=== PATIENT | male | born 1950 | race Caucasian/White ===

== ENCOUNTER 2020-04-25 11:39 | Outpatient (REF) | payer MEDICARE, SELFPAY | END 2020-04-25 11:40 | disposition home or self-care (01) | LOC: HO.LAB 11:39 | PROVIDERS: Visit Provider Internal Medicine | DX: Z20.828 Contact with and (suspected) exposure to other viral communicable diseases (principal) | CPT/HCPCS: C9803; U0003 ==

== ENCOUNTER 2022-12-28 00:15 | Emergency (ER) | payer MEDICARE, SELFPAY ==
[2022-12-28 00:36] VITALS: BP 144/85; PULSE 87; RESP 18; TEMP 37.1; O2SAT 97; BMI 27.9
--- NOTE | 2022-12-28 01:12 | PC.NURSE ---
patient reports increase in difficulty hearing in left ear over the past two weeks. some visible wax build-up on examination.
--- NOTE | 2022-12-28 01:31 | ED.GENADULT ---
HPI - General Adult General Chief complaint: Ear Problems Stated complaint: Pain left ear Time Seen by Provider: 12/28/22 00:51 Source: patient and RN notes reviewed Mode of arrival: ambulatory Limitations: no limitations History of Present Illness HPI narrative: 72 year old male presents for evaluation of left ear pain Patient reports that about 10 months ago he started to notice decreased hearing on the left side For the last few months he has had increasing left ear pain He admits to using Q-tips occasionally He did not stick anything else in his ear Related Data Allergies Allergy/AdvReac Type Severity Reaction Status Date / Time No Known Allergies Allergy Unverified 12/28/22 00:35 Review of Systems ENT: Denies ear discharge and Reports otalgia PMFSH Social History Social History Alcohol intake: current Alcohol intake frequency: holidays/special occasions only Smoked in Last 30 Days: No Use of substances other than those prescribed or required for medical reasons: No Physical Exam ED Vital Signs: Vital Signs - 24 hr 12/28/22 00:36 Temperature 98.7 F Pulse Rate 87 Respiratory Rate 18 Blood Pressure 144/85 H Pulse Oximetry 97 Oxygen Delivery Method Room Air BMI result Body Mass Index 27.9 HENMT Other: Left external ear canal is occluded with dark brown cerumen. Postprocedure the tympanic membrane was visualized, pearly white without perforation. No mastoid tenderness or postauricular edema Ears: external ears normal and TM normal on the right Medical Decision Making Medical Decision Making MDM Narrative: Patient has a cerumen impaction of the left ear. The left ear was irrigated with 100 cc of solution of warm water mixed with hydrogen peroxide. A curette was then used to remove large clumps of ear wax from the ear canal. Patient tolerated the procedure well, there were no complications Differential Diagnosis Differential Diagnoses: The differential diagnosis associated with the presentation includes cerumen impaction Otitis media Otitis externa Mastitis Discharge Plan Discharge Clinical Impression: Cerumen impaction Patient Disposition: Home, Self-Care Instructions: Earache (ED) Additional Instructions: You had a buildup of ear wax in your left ear. You may use Debrox drops which are [id number] to help soften up the last little bit of remaining ear wax Follow-up with your primary doctor
== END 2022-12-28 01:43 | disposition home or self-care (01) ==
PROVIDERS: Emergency Provider Emergency Medicine
DX: H61.22 Impacted cerumen, left ear (principal); H92.02 Otalgia, left ear
CPT/HCPCS: 69210; 99284

== ENCOUNTER 2023-02-01 19:31 | Inpatient (IN) | payer MEDICARE, SELFPAY ==
[2023-02-01 19:44] VITALS: BP 163/87; PULSE 99; RESP 18; TEMP 36.8; O2SAT 96; BMI 30.7
--- NOTE | 2023-02-01 19:45 | ED.GENADULT ---
HPI - General Adult General Chief complaint: Neuro Symptoms/Deficit Stated complaint: Pain in neck/head/jaw, can't eat Time Seen by Provider: 02/01/23 20:12 Source: patient Mode of arrival: ambulatory Limitations: no limitations History of Present Illness HPI narrative: A 72-year-old Slovak pleasant male patient came in for evaluation of 3 days history of difficulty swallowing of any food ( solid or liquid) patient today could not swallow a yogurt had spitted out patient described it as a weakness of the muscle of his neck that make him cannot swallow, patient also described dysarthria and dry mouth with difficulty speaking for the past 3 days patient speaks enough Togolese to express himself. complaining of headache, no blurry vision, no photophobia. Patient declined any trauma to the head or neck. Otherwise patient declined any weakness or numbness, no CP, no SOB. Related Data Allergies Allergy/AdvReac Type Severity Reaction Status Date / Time No Known Allergies Allergy Verified 02/01/23 19:44 Review of Systems Review of Systems: All other systems are reviewed and are negative Constitutional: Reports as per HPI and Reports no additional constitutional complaints Eyes: Reports as per HPI and Reports no additional eye complaints Reports system reviewed and no additional complaints, except as documented Cardiovascular: Reports as per HPI and Reports no additional cardiovascular complaints Respiratory: Reports as per HPI and Reports no additional respiratory complaints Gastrointestinal: Reports as per HPI and Reports no additional gastrointestinal complaints Genitourinary: Reports no additional female genitourinary complaints Musculoskeletal: Reports no additional musculoskeletal complaints Skin/Breast: Reports system reviewed and no additional complaints, except as docu Psychiatric: Reports no additional psychiatric complaints Endocrine: Reports no additional endocrine complaints Hematologic/Lymphatic: Reports no additional hematologic/lymphatic complaints Allergic/Immunologic: Reports no additional allergic/immunologic complaints Reports system reviewed and no additional complaints, except as documented and Reports Abnormal speech present [facility] Social History Social History Alcohol intake: current Alcohol intake frequency: holidays/special occasions only Advance Directives: No Advance Directives Information Provided: No Physical Exam ED Vital Signs: Vital Signs - 24 hr 02/01/23 19:44 02/01/23 22:26 Temperature 98.3 F 97.9 F Pulse Rate 99 84 Respiratory Rate 18 18 Blood Pressure 163/87 H 149/76 H Pulse Oximetry 96 95 Oxygen Delivery Method Room Air Room Air BMI result Body Mass Index 30.7 Vital signs have been reviewed and appear to be correct. Blood pressure elevated. Heart rate normal. Respiratory rate normal. Temperature normal. Oxygen saturation normal. Appearance: Alert. Oriented X3. No acute distress. Head: Normal external exam. Normocephalic. Atraumatic. No Wynne signs noted. No raccoon eyes noted Eyes: PERRLA. EOMI. Conjunctiva and sclera normal. Eyelids normal. ENT: TM's Normal. Pharynx normal. Uvula midline. Moist mucous membranes. No trismus noted. No drooling noted. No muffled voice noted. Neck: Normal inspection. Neck supple. FROM. No adenopathy. Thyroid Normal. No meningeal signs. No neck mass noted. CVS: Normal heart rate and rhythm. Heart sound normal. No murmurs noted. Pulses normal throughout. Respiratory: No respiratory distress. Painless inspiration. Breath sounds normal. No wheezes/rales/rhonchi noted. Chest nontender. No accessory muscle usage noted or decreased air movement noted. Abdomen: Soft and nontender. Bowel sounds normal in all 4 quadrants. No distention noted. No organomegaly noted. No visible injury noted. Back: No CVA tenderness. Full range of motion noted. Skin: Skin warm and dry. Normal skin color. Normal skin turgor. No rashes/lesions/lacerations noted. Extremities: No lower extremity edema. Extremities exhibit normal range of motion. Extremities nontender. Neuro: Oriented X 3. Cranial nerve exam: II-XII are grossly intact No motor deficit. No sensory deficit. Reflexes normal. NIH Stroke Scale Time: 20:45 Level of Consciousness: Alert Level of Consciousness Questions: Answers both questions correctly Level of Consciousness Commands: Performs both tasks correctly Best Gaze: Normal Visual: No visual loss Facial Palsy: Normal Motor Arm (Right): No drift Motor Arm (Left): No drift Motor Leg (Right): No drift Motor Leg (Left): No drift Limb Ataxia: Absent Sensory: Normal Best Language: No aphasia Dysarthia: Normal Extinction and Inattention: No abnormality Score: 0 Course Course Course Narrative: This is an RME: Additional HPI, ROS, PE not included below will be deferred to primary provider. This is a [id number] presenting to the emergency department with a complaint of difficulty eating, speaking and swallowing x 2 days. Pt states that he has had neck pain over the last week. He states that he noticed two days ago difficulty eating, speaking and swallowing. Pt with obvious difficulty with smiling and ?dysarthria. Plan: Labs, Reevaluation(s) Reevaluation #1: 72-year-old male came in with 3 days of difficulty small wound and difficulty speaking feeling dry mouth, otherwise normal neuro exam, head CT is unremarkable, symptoms started 3 days ago, soft tissue neck CT is also unremarkable, the case discussed with Dr. Nam (GI) think it is more neurological than gastro problem, will admit the patient for further neurological and gastric evaluation. Will admit accepted by Dr. Augustin. Time: 22:38 Medical Decision Making Differential Diagnosis Differential Diagnoses: The differential diagnosis associated with the presentation includes ( Foreign body in the esophagus, esophagitis, gastritis, GI tumor, neurological deficit, dehydration, electrolyte abnormality, severe anemia.) Admission/Observation Consideration of admission/observation: Escalation of care including admission/observation considered Consult Healthcare Provider Management of the patient was discussed with: Hospitalist ( Dr. Villa) Lab Data MDM Lab Attestation statement: I reviewed the patient's lab results. 02/01/23 20:12 02/01/23 20:12 Labs: Lab Results 02/01/23 02/01/23 Range/Units 20:00 20:12 WBC 6.8 (4.8-10.8) X10*3/uL RBC 4.25 L (4.60-5.80) X10*6/uL Hgb 12.9 L (14.0-18.0) g/dl Hct 38.0 L (42.0-52.0) % MCV 89.4 (80.0-98.0) fL MCH 30.4 (27.0-33.0) pg MCHC 33.9 (31.0-36.0) g/dl RDW 12.6 (11.0-16.0) % Plt Count 285 (160-400) X10*3/uL MPV 8.7 L (9.4-12.4) fL Immature Gran % (Auto) 0.3 (0.0-0.4) % Neut % (Auto) 58.4 (45-73) % Lymph % (Auto) 31.0 (20-40) % [place] % (Auto) 7.5 (2-11) % Eos % (Auto) 1.8 (0-4) % Baso % (Auto) 1.0 (0-2) % Lymph # (Auto) 2.1 (1.2-4.9) X10*3/uL [place] # (Auto) 0.5 (0.1-1.2) X10*3/uL Eos # (Auto) 0.1 (0.0-0.4) X10*3/uL Baso # (Auto) 0.1 (0.0-0.2) X10*3/uL Abs Immat Gran (auto) 0.02 (0.00-0.03) X10*3/uL Absolute Neuts (auto) 4.0 (2.0-8.3) x10*3/uL Absolute Nucleated RBC 0.000 (0.0-0.012) X10*3/uL Nucleated RBC % (auto) 0.0 (0.0-0.2) /100WBC PT 12.1 (11.1-13.3) SEC INR 1.0 (0.9-1.1) APTT 32.5 (26.0-36.4) SEC Sodium 143 (135-145) mmol/L Potassium 3.4 (3.3-5.1) mmol/L Chloride 110 H (96-108) mmol/L Carbon Dioxide 21 L (22-29) mmol/L Anion Gap 15 (12-20) BUN 10 (9-16) mg/dL Creatinine 0.82 (0.5-1.4) mg/dL Estim Creat Clear Calc 86.3 Estimated GFR > 60 POC Glucose 102 (60-115) mg/dL Random Glucose 92 (60-115) mg/dL Calcium 8.7 (8.4-10.2) mg/dL Magnesium 2.0 (1.6-2.6) mg/dL Total Bilirubin 0.9 (0.0-1.0) mg/dL Direct Bilirubin 0.3 (0.0-0.5) mg/dL AST 8 (5-37) U/L ALT 7 (0-40) U/L Alkaline Phosphatase 66 (39-117) U/L Total Creatine Kinase 110 (38-174) U/L Troponin I High Sens < 2.7 (<3.5-35.0) ng/L Total Protein 6.3 L (6.5-8.0) g/dL Albumin 3.8 (3.5-5.0) g/dL Independent Interpretation I performed an independent interpretation of an: CT Scan ( head/ soft tissue neck: No acute pathology.) Radiology Impression Discussion of test interpretation with radiology: I have reviewed the radiologist's reading. Discharge Plan Discharge Clinical Impression: Dysphagia Patient Disposition: Admitted As Inpatient
--- NOTE | 2023-02-01 20:20 | PC.NURSE ---
this rn assumed care of pt from triage. iv placed, blood obtained and sent down to lab. 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 awaiting ct scan and to be seen by
[2023-02-01 22:26] VITALS: BP 149/76; PULSE 84; RESP 18; TEMP 36.6; O2SAT 95
[2023-02-01 22:51] VITALS: BP 136/78; PULSE 83; RESP 22; TEMP 36.8; O2SAT 95
--- NOTE | 2023-02-01 23:36 | P.HPHOSP_ITS ---
History of Present Illness Date of Service: 02/01/23 Chief Complaint: Dysphagia A 72-year-old male with no known chronic medical conditions presents with a week-long history of worsening dysphagia (difficulty swallowing solids) associated with some discomfort. He also reports a feeling of facial paralysis, particularly with smiling and speaking for the last 2 days, although his speech appears intact to me other than his strong [place] accent. He has normal motor strength and slightly blurred vision. CT head no stroke, Soft Tissue CT of neck: no acute abnormalities Review of Systems 2 Review of Systems: Gen: no fever Resp: no sob, no cough CV: no chest, no ARMSTRONG, no leg edema GI: No n/v, no abd pain, trouble swallowing solids Neuro: No confusion Yes all other systems are reviewed and are negative [facility] Social History Alcohol intake: current Alcohol intake frequency: holidays/special occasions only Advance Directives: No Advance Directives Information Provided: No Meds Allergies Allergy/AdvReac Type Severity Reaction Status Date / Time No Known Allergies Allergy Verified 02/01/23 19:44 Physical Exam 2 Vital Signs and Narrative: Vital Signs: Last Vital Signs Temp 98.2 F 02/01/23 22:51 Pulse 83 02/01/23 22:51 Resp 22 H 02/01/23 22:51 BP 136/78 02/01/23 22:51 Pulse Ox 95 02/01/23 22:51 O2 Del Method Room Air 02/01/23 22:51 BMI result Body Mass Index 30.7 Const: Other: Constitutional: Alert, in no distress Mental Status: Oriented to person, place and time. Eyes: Pupils are equal, round and reactive to light. Ear, Nose and Throat: Oropharynx clear, mucous membranes moist. Respiratory: Clear to auscultation. No wheezing, rales or rhonchi. Cardiovascular: S1 S2 regular. No murmurs, rubs or gallops. Gastrointestinal: Abdomen soft, non-tender, non-distended. Normal bowel sounds.? Neurologic: Cranial nerves II-XII grossly intact. No focal neurological deficits. Moves all extremities spontaneously.? Skin: No rashes or lesions.? Musculoskeletal: No cyanosis or clubbing. Psychiatric: Normal mood and affect? Results Labs 02/01/23 20:12 02/01/23 20:12 Labs: Laboratory Results - last 24 hr 02/01/23 02/01/23 20:00 20:12 MCV 89.4 MCH 30.4 MCHC 33.9 RDW 12.6 Plt Count 285 MPV 8.7 L Immature Gran % (Auto) 0.3 Neut % (Auto) 58.4 Lymph % (Auto) 31.0 [place] % (Auto) 7.5 Eos % (Auto) 1.8 Baso % (Auto) 1.0 Lymph # (Auto) 2.1 [place] # (Auto) 0.5 Eos # (Auto) 0.1 Baso # (Auto) 0.1 Abs Immat Gran (auto) 0.02 Absolute Neuts (auto) 4.0 Absolute Nucleated RBC 0.000 Nucleated RBC % (auto) 0.0 PT 12.1 INR 1.0 APTT 32.5 Anion Gap 15 Estim Creat Clear Calc 86.3 Estimated GFR > 60 POC Glucose 102 Random Glucose 92 Calcium 8.7 Magnesium 2.0 Total Bilirubin 0.9 Direct Bilirubin 0.3 AST 8 ALT 7 Alkaline Phosphatase 66 Total Creatine Kinase 110 Total Protein 6.3 L Albumin 3.8 Imaging Radiologist's Impressions: Impressions Head CT 02/01/23 20:41 IMPRESSION: No acute intracranial abnormality. Specifically, there is no evidence of acute intracranial hemorrhage or acute territorial edematous infarction. Soft Tissue Neck CT 02/01/23 20:41 IMPRESSION: 1. No acute abnormality. 2. Retention cyst in the right maxillary sinus. Assessment and Plan (1) Dysphagia: Status: Acute Plan 72/m with Dysphagia, some trouble with speech/smile. DDx: * Myasthenia gravis * Guillain-Ellis? syndrome (appear less likely) Plan: Obs for GI and Neuro eval. NPO. Check Acetylcholine receptor (AChR) antibody. Monitor for any respiratory issues Time Spent With Patient Time: Total time managing care of this patient today ____ minutes. Quality Stroke Does the patient have a stroke diagnosis?: No VTE Prior VTE?: No VTE Risk Level:: Medical - moderate - high VTE Device Contraindication: Treatment Not Indicated VTE Drug Contraindication: N/A - Med Ordered
[2023-02-02] VITALS (9 sets, daily range): BP systolic 119–145; BP diastolic 65–104; PULSE 74–91; RESP 15–20; TEMP 36.2–36.8; O2SAT 92–95
--- NOTE | 2023-02-02 01:13 | PC.NURSE ---
pt reports no home meds taken. med rec performed by this rn. pt ambulatory to restroom. pt repositioned back to bed. pt medicated according to mar lights dimmed blanket provided. pt educated on use of call miguel
--- NOTE | 2023-02-02 02:15 | PC.NURSE ---
pt reporting 8/10 neck pain. this rn made dr christiansen aware. pt medicated according to jun. lights dimmed pt repositioned on back
--- NOTE | 2023-02-02 07:12 | PHA.MEDREC ---
Pharmacy Consult ? Medication Reconciliation Pharmacy has completed the medication reconciliation. Reviewed med rec done by nursing
--- NOTE | 2023-02-02 07:28 | PC.NURSE ---
assumed care of this pt at 0700. pt awake in bed at the time of assuming care. pt reports 8/10 headache, and dizziness when he stands up.
--- NOTE | 2023-02-02 11:11 | PM.EVENT ---
Event Note Date of Service: 02/02/23 Event Note: GI consult dictated dysphagia with nasal regurgitation of liquids no evidence of food impaction or progressive dysphagia speech pathology evaluation ordered neuroloygy consult pending Time Spent With Patient Time: Total time managing care of this patient today ____ minutes.
--- NOTE | 2023-02-02 11:12 | MHC.CM.PN ---
IMM DELIVERED PT SPEAKS [place]ONGOLIAN/TELUGU PT LIVES ALONE. 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 +COVID VAX NO HCP, DECLINES TO NAME SOMEONE AT THIS TIME. NO PCP, [facility] PROVIDED. + THRIVE ASSESSMENT, RESOURCE GUIDE PROVIDED. DP: HOME, NO SERVICES ANTICIPATED. PT HAS OWN RIDE HOME. CM WILL CONTINUE TO FOLLOW FOR ANY CHANGE IN DC PLAN/NEEDS.
--- NOTE | 2023-02-02 11:50 | PC.NURSE ---
this rn attempted to do a swallow eval on pt, pt stated they did one and I was not able to swallow it is too hard for me, it hurts every time I try . pt has water with green sponge swabs at his bedside that he uses to moisten mouth and lips.
--- NOTE | 2023-02-02 12:38 | HO.PM.IMPN ---
Subjective Subjective Date of Service: 02/02/23 Interval History: Seen and evaluated this morning reports painful swallowing and coughing with it Right sided neck pain facial weakness improved No other overnight events Review of Systems Review of Systems: Yes all other systems are reviewed and are negative Physical Exam Vital Signs: Vital Signs: Last Vital Signs Temp 97.7 F 02/02/23 00:12 Pulse 77 02/02/23 10:30 Resp 15 02/02/23 10:30 BP 132/65 02/02/23 10:30 Pulse Ox 95 02/02/23 10:30 O2 Del Method Room Air 02/02/23 10:30 BMI result Body Mass Index 30.7 Const: Other: Constitutional : Awake, interactive, not in distress Neck : Normal inspection, Supple, tenderness over the right trapez muscle Throat mildly erythema but no pus noted Cardiovascular : RRR, no JVP, no lower extremity edema Respiratory : good bilateral air entry, no crackles, wheezes or rhonchi Gastrointestinal: soft, lax, Normal bowel sounds, Non tender Skin : Warm, Dry Neurological : Alert & oriented x3, No focal deficit , CN 2-12 within normal, no focal weakness Objective Data Active Medications Enoxaparin Sodium (Enoxaparin Sodium 40 Mg/0.4 Ml Syringe) 40 mg SUBCUT Q24H [facility] Last Admin: 02/02/23 10:28 Dose: 40 mg Documented By: MCKAY Dextrose/Sodium Chloride (D51/2ns) 1,000 mls @ 100 mls/hr IVCONT .Q10H [facility] Last Admin: 02/02/23 10:24 Dose: 100 mls/hr Documented By: MCKAY Morphine Sulfate (Morphine Sulfate 2 Mg/Ml Cartridge) 2 mg IVPUSH Q6H PRN; Protocol PRN Reason: Pain, Severe (Pain Scale 7-10) Last Admin: 02/02/23 02:14 Dose: 2 mg Documented By: MICHELE Sodium Chloride (0.9 % Sodium Chloride Flush 3 Ml Syringe) 3 ml IVFLUSH QSHIFT [facility] Last Admin: 02/02/23 07:24 Dose: Not Given Documented By: MCKAY Non-Admin Reason: IV Running Labs 02/01/23 20:12 02/01/23 20:12 Labs: Laboratory Results - last 24 hr 02/01/23 02/01/23 02/02/23 20:00 20:12 00:36 MCV 89.4 MCH 30.4 MCHC 33.9 RDW 12.6 Plt Count 285 MPV 8.7 L Immature Gran % (Auto) 0.3 Neut % (Auto) 58.4 Lymph % (Auto) 31.0 [place] % (Auto) 7.5 Eos % (Auto) 1.8 Baso % (Auto) 1.0 Lymph # (Auto) 2.1 [place] # (Auto) 0.5 Eos # (Auto) 0.1 Baso # (Auto) 0.1 Abs Immat Gran (auto) 0.02 Absolute Neuts (auto) 4.0 Absolute Nucleated RBC 0.000 Nucleated RBC % (auto) 0.0 Hold Purple Top SEE NOTE PT 12.1 INR 1.0 APTT 32.5 Anion Gap 15 Estim Creat Clear Calc 86.3 Estimated GFR > 60 POC Glucose 102 Random Glucose 92 Calcium 8.7 Magnesium 2.0 Total Bilirubin 0.9 Direct Bilirubin 0.3 AST 8 ALT 7 Alkaline Phosphatase 66 Total Creatine Kinase 110 Total Protein 6.3 L Albumin 3.8 Hold Green Top See Note Urine Color Urine Appearance Urine pH Ur Specific Brandon Urine Protein Urine Glucose (UA) Urine Ketones Urine Blood Urine Nitrite Ur Leukocyte Esterase Urine RBC Urine WBC Ur Squamous Epith Cells Urine Bacteria Hyaline Casts 02/02/23 00:40 MCV MCH MCHC RDW Plt Count MPV Immature Gran % (Auto) Neut % (Auto) Lymph % (Auto) [place] % (Auto) Eos % (Auto) Baso % (Auto) Lymph # (Auto) [place] # (Auto) Eos # (Auto) Baso # (Auto) Abs Immat Gran (auto) Absolute Neuts (auto) Absolute Nucleated RBC Nucleated RBC % (auto) Hold Purple Top PT INR APTT Anion Gap Estim Creat Clear Calc Estimated GFR POC Glucose Random Glucose Calcium Magnesium Total Bilirubin Direct Bilirubin AST ALT Alkaline Phosphatase Total Creatine Kinase Total Protein Albumin Hold Green Top Urine Color Yellow Urine Appearance Clear Urine pH 7.0 Ur Specific [place] 1.015 Urine Protein Negative Urine Glucose (UA) Negative Urine Ketones Negative Urine Blood Small (1+) H Urine Nitrite Negative Ur Leukocyte Esterase Negative Urine RBC 6-10 H Urine WBC 0-5 Ur Squamous Epith Cells 0-2 Urine Bacteria None Seen Hyaline Casts 0-2 Assessment and Plan (1) Dysphagia: Status: Acute (2) Facial numbness: Status: Acute Plan A 72/m with no significant PMH who presents with Dysphagia, some trouble with speech/smile. Dysphagia it seems more of a painful swallowing rather than weakness CT neck soft tissue negative for any massed\abscess Pending GI eval THERAPEUTIC RECREATION SPECIALIST evaluation Keep on IVF for now Facial numbness vague presentation, reporting double vision , denies fatigue CT head negative for any stroke No focal weakness Neuro eval for possible concerns of MG\GBS Check Acetylcholine receptor (AChR) antibody Monitor for any respiratory issues DVT PPx Lovenox Time Spent With Patient Time: Total time managing care of this patient today ____ minutes. Quality Stroke Does the patient have a stroke diagnosis?: No VTE Prior VTE?: No VTE Risk Level:: Medical - moderate - high VTE Device Contraindication: Treatment Not Indicated VTE Drug Contraindication: N/A - Med Ordered
--- NOTE | 2023-02-02 13:02 | PC.NURSE ---
pt states its hard for me to swallow it hurts when I try . Dr. Bullock aware.
--- NOTE | 2023-02-02 16:49 | PM.NEUROCN ---
History of Present Illness Data of Consult Service Date: 02/02/23 Primary Care Provider: None Physician HPI Reason for consult: dysphagia, neck pain This is a 72-year-old man generally healthy man with GERD on Nexium is being admitted to the hospital with complaints of 5 days of neck pain and difficulty holding up his head which seems too heavy, worse in last 3 days and new development of, dysphagia, and nasal regurgitation, intermittent double vision and facial weakness. He does have a history of gastroesophageal reflux disease and underwent upper endoscopy about 5 years ago in [place] with no significant abnormal findings. He uses [id number] Nexium with good control of his reflux.CT of brain and neck were unremarkable and CPK in normal range. Review of Systems Review of Systems: Gen: no fever Resp: no sob, no cough CV: no chest, no ARMSTRONG, no leg edema GI: No n/v, no abd pain, trouble swallowing solids Neuro: No confusion Yes all other systems are reviewed and are negative [facility] Social History Social History Alcohol intake: current Alcohol intake frequency: holidays/special occasions only Patient Tobacco Use Status: Never used Tobacco Smoked in Last 30 Days: No Use of substances other than those prescribed or required for medical reasons: No Advance Directives: No Advance Directives Information Provided: No Nutrition Risks: No Nutritional Risk service: No Meds Allergies Allergy/AdvReac Type Severity Reaction Status Date / Time No Known Allergies Allergy Verified 02/01/23 19:44 Active Medications: Current Medications Cyclobenzaprine HCl (Cyclobenzaprine Hcl 5 Mg Tablet) 5 mg PO BID [facility] Enoxaparin Sodium (Enoxaparin Sodium 40 Mg/0.4 Ml Syringe) 40 mg SUBCUT Q24H [facility] Last Admin: 02/02/23 10:28 Dose: 40 mg Dextrose/Sodium Chloride (D51/2ns) 1,000 mls @ 100 mls/hr IVCONT .Q10H [facility] Last Admin: 02/02/23 10:24 Dose: 100 mls/hr Morphine Sulfate (Morphine Sulfate 2 Mg/Ml Cartridge) 2 mg IVPUSH Q6H PRN; Protocol PRN Reason: Pain, Severe (Pain Scale 7-10) Last Admin: 02/02/23 02:14 Dose: 2 mg Ondansetron HCl (Ondansetron Hcl 4 Mg/2 Ml Vial) 4 mg IVPUSH Q6H PRN PRN Reason: Nausea and Vomiting Sodium Chloride (0.9 % Sodium Chloride Flush 3 Ml Syringe) [facility] Last Admin: 02/02/23 07:24 Dose: Not Given Home Medications Medication Instructions Recorded Confirmed Last Taken Type No Known Home Meds 02/02/23 02/02/23 Unknown History Physical Exam Vital Signs: Vital Signs: Last Vital Signs Temp 97.7 F 02/02/23 00:12 Pulse 91 02/02/23 14:36 Resp 18 02/02/23 14:36 BP 142/88 H 02/02/23 14:36 Pulse Ox 95 02/02/23 14:36 O2 Del Method Room Air 02/02/23 14:36 BMI result Body Mass Index 30.7 Const: Other: Constitutional : Awake, interactive, not in distress Neck : Normal inspection, Supple, tenderness over the right trapez muscle Throat mildly erythema but no pus noted Cardiovascular : RRR, no JVP, no lower extremity edema Respiratory : good bilateral air entry, no crackles, wheezes or rhonchi Gastrointestinal: soft, lax, Normal bowel sounds, Non tender Skin : Warm, Dry Neurological : Alert & oriented x3, No focal deficit , CN 2-12 within normal, no focal weakness Neuro: Other: Bifacial weakness, weakness in neck flexors and extensors 4/5 and fatiguing of proximal limb muscles on sustained posture. DTRs 2+. Plantars flexor Results Labs 02/01/23 20:12 02/01/23 20:12 Labs: Short CBC 02/01/23 Range/Units 20:12 WBC 6.8 (4.8-10.8) X10*3/uL Hgb 12.9 L (14.0-18.0) g/dl Hct 38.0 L (42.0-52.0) % Plt Count 285 (160-400) X10*3/uL BMP 02/01/23 20:12 Sodium 143 Potassium 3.4 Chloride 110 H Carbon Dioxide 21 L BUN 10 Creatinine 0.82 Calcium 8.7 Cardiac Enzymes 02/01/23 Range/Units 20:12 Total Creatine Kinase 110 (38-174) U/L Liver Function 02/01/23 Range/Units 20:12 Total Bilirubin 0.9 (0.0-1.0) mg/dL Direct Bilirubin 0.3 (0.0-0.5) mg/dL AST 8 (5-37) U/L ALT 7 (0-40) U/L Alkaline Phosphatase 66 (39-117) U/L Albumin 3.8 (3.5-5.0) g/dL Urine 02/02/23 Range/Units 00:40 Urine Color Yellow Urine Appearance Clear Urine pH 7.0 (5.0-9.0) Ur Specific Mcdonald 1.015 (1.005-1.025) Urine Protein Negative (Neg-Trace) mg/dL Urine Glucose (UA) Negative (Negative) mg/dL Assessment and Plan (1) Dysphagia: Status: Acute He most likely has Myasthenia gravis with diplopia, bifacial weakness, dysphagia, nasal regurgitation and weakness of neck and proximal limb muscles. Recom.: Acetylcholine modifying and neutralizing antibodies. Get baseline forced vital capacity and FEV1 today and twice a day. Start IVIG 2gm/ kg : 170gm divided doses over 5 days (2) Facial numbness: Status: Acute Plan A 72/m with no significant PMH who presents with Dysphagia, some trouble with speech/smile. 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 Procedures Date of Service Date of Service: 02/02/23
--- NOTE | 2023-02-02 19:00 | PC.NURSE ---
pt medicated with pre-meds beforIVIG
--- NOTE | 2023-02-02 19:55 | PC.NURSE ---
immune globulin infusion started per JUN. pt vitals stable before beginning infusion. pt denies pain.
--- NOTE | 2023-02-02 20:07 | PC.NURSE ---
observation over first 15 minutes of infusion - no signs of distress or reaction, vitals stable, pt does not report and itching or burning sensations. pt afebrile, spo2 95
--- NOTE | 2023-02-02 20:08 | MHC.EDTECH ---
THIS PCT ASSUMED CARE OF PT AT 1900 ,PATIENT COMFORTABLE ,RESTING IN BED ,WILL CONTINUE TO MONITOR .
--- NOTE | 2023-02-02 20:31 | PC.NURSE ---
pt does not report any itchiness, burning, or adverse reactions. no change in condition since immune globulin began infusing.
--- NOTE | 2023-02-02 21:29 | PC.NURSE ---
iv dextrose continuing infusion; delay as iv is positional. neuros intact pt axox4. vss. awaiting bed assignment.
--- NOTE | 2023-02-02 21:39 | PC.NURSE ---
report given to S3 RN.
[2023-02-03 03:42] VITALS: BP 127/69; PULSE 76; RESP 16; TEMP 35.9; O2SAT 93
[2023-02-03 07:10] VITALS: BP 145/82; PULSE 81; RESP 16; TEMP 36.7; O2SAT 96
--- NOTE | 2023-02-03 10:30 | PC.RT ---
NIF -55 VC 3.94
--- NOTE | 2023-02-03 11:37 | HO.PM.IMPN ---
Subjective Subjective Date of Service: 02/03/23 Interval History: Seen and evaluated this morning Feels better and stronger, tolerating diet with less difficulties swallowing No speech problem or double vision overnight facial weakness improved No other overnight events Review of Systems Review of Systems: Yes all other systems are reviewed and are negative Constitutional Constitutional: Denies night sweats Physical Exam Vital Signs: Vital Signs: Last Vital Signs Temp 98.1 F 02/03/23 07:10 Pulse 81 02/03/23 07:10 Resp 16 02/03/23 07:10 BP 145/82 H 02/03/23 07:10 Pulse Ox 96 02/03/23 07:10 O2 Del Method Room Air 02/03/23 07:10 BMI result Body Mass Index 30.7 Const: Other: Constitutional : Awake, interactive, not in distress Neck : Normal inspection, Supple, tenderness over the right trapez muscle Throat mildly erythema but no pus noted Cardiovascular : RRR, no JVP, no lower extremity edema Respiratory : good bilateral air entry, no crackles, wheezes or rhonchi Gastrointestinal: soft, lax, Normal bowel sounds, Non tender Skin : Warm, Dry Neurological : Alert & oriented x3, No focal deficit , CN 2-12 within normal, no focal weakness , normal speech Objective Data Active Medications Acetaminophen (Acetaminophen 325 Mg Tablet) 650 mg PO Q24H [facility] Stop: 02/06/23 11:31 Cyclobenzaprine HCl (Cyclobenzaprine Hcl 5 Mg Tablet) 5 mg PO BID [facility] Last Admin: 02/03/23 08:26 Dose: 5 mg Documented By: PRETTY Diphenhydramine HCl (Diphenhydramine Hcl 50 Mg/Ml Vial) 25 mg IVPUSH Q24H [facility] Stop: 02/06/23 11:31 Enoxaparin Sodium (Enoxaparin Sodium 40 Mg/0.4 Ml Syringe) 40 mg SUBCUT Q24H [facility] Last Admin: 02/03/23 08:26 Dose: 40 mg Documented By: PRETTY Hydrocortisone Sodium Succinate (Hydrocortisone Sod Succ/Pf 100 Mg Vial) 100 mg IVPUSH Q24H [facility] Stop: 02/06/23 11:31 Immune Globulin (Gammagard 10%) 200 mls @ 43 mls/hr IV DAILY@1200 [facility] Stop: 02/05/23 16:40 Immune Globulin (Gammagard 10%) 200 mls @ 43 mls/hr IV DAILY@1700 [facility] Stop: 02/05/23 21:40 Immune Globulin (Gammagard 10%) 100 mls @ 43 mls/hr IV ONCE ONE Stop: 02/06/23 14:19 Morphine Sulfate (Morphine Sulfate 2 Mg/Ml Cartridge) 2 mg IVPUSH Q6H PRN; Protocol PRN Reason: Pain, Severe (Pain Scale 7-10) Last Admin: 02/02/23 02:14 Dose: 2 mg Documented By: MICHELE Ondansetron HCl (Ondansetron Hcl 4 Mg/2 Ml Vial) 4 mg IVPUSH Q6H PRN PRN Reason: Nausea and Vomiting Sodium Chloride (0.9 % Sodium Chloride Flush 3 Ml Syringe) 3 ml IVFLUSH QSHIFT [facility] Last Admin: 02/03/23 07:16 Dose: Not Given Documented By: PRETTY Non-Admin Reason: IV Running Labs 02/03/23 05:39 02/03/23 05:59 Labs: Laboratory Results - last 24 hr 02/03/23 02/03/23 05:39 05:59 MCV 90.5 MCH 29.9 MCHC 33.1 RDW 12.3 Plt Count 295 MPV 9.4 Absolute Nucleated RBC 0.000 Nucleated RBC % (auto) 0.0 Anion Gap 12 Estim Creat Clear Calc 95.6 Estimated GFR > 60 Random Glucose 122 H Calcium 8.6 Assessment and Plan (1) Myasthenia gravis with exacerbation: Status: Acute Plan A 72/m with no significant PMH who presents with Dysphagia, some trouble with speech/smile. Acute mysthenia gravis Dysphagia and facial numbness improving CT head negative for any stroke CT neck soft tissue negative for any massed\abscess Neuro eval appreciated, 5 munguia of Tx on IVIG Day 2/5 APPLICATION PENETRATION TESTER evaluation Pending Acetylcholine receptor (AChR) antibody Keep on IVF for now PT\OT BID Spirometry Monitor for any respiratory issues DVT PPx Lovenox The patient will need overnight hospital stay for treatment of acute mysthenia gravis on IVIG Time Spent With Patient Time: Total time managing care of this patient today ____ minutes. Quality Stroke Does the patient have a stroke diagnosis?: No VTE Prior VTE?: No VTE Risk Level:: Medical - moderate - high VTE Device Contraindication: Treatment Not Indicated VTE Drug Contraindication: N/A - Med Ordered
[2023-02-03 12:00] VITALS: BP 137/75; PULSE 98; RESP 20; TEMP 36.7; O2SAT 95
--- NOTE | 2023-02-03 12:26 | MHC.SL.SWA ---
Speech Pathologist Impression: Risk of aspiration Risk of Aspiration Due to: Neurological Condition Dysphasia Diet Status: UPGRADE to REGULAR texture diet Liquid Consistency and Strategies for Safe Swallow: Liquid Intake Recommendation: Thin Liquid Intake Strategies: Small Sips Solid Food Consistency: Dietary Recommendations: Regular Additional Modifications to Solid Foods: Pt w/ acute Myasthenia Gravis. Pt was seen this morning for bedside dysphagia evaluation. Pt denied odynophagia. He reported things were slow to get down and described globus sensation in his throat. Pt also reported having had liquid coming out of his nose on a few occasions. CASUALTY CLAIM ADJUSTER observed pt eating pudding, jazmine crackers, taking sips of water. Pt w/ mildly slowed chewing and mildly delayed swallow. Other aspects of swallow WFL. Good oral clearance and no overt s/s of aspiration. Pt is recommended UPGRADE from ground diet to REGULAR texture solids, continue w/ THIN liquids, pills WHOLE in LIQUID. D/t new neurological dx, recommend aspiration precautions and intermittent supervision. Per MD, pt to be monitored to see how he does w/ treatment, indication of further studies TBD. Oral Medication Intake: Whole with Liquid Please contact the pharmacy regarding appropriate crushable or liquid drug formulations that are available whenever modified delivery is recommended. Compensatory Strategies and Precautions to be Taken for Safe Swallow: Sitting Upright (90 deg) Double Swallow Small Bites and Sips Alternate Liquids/Solids Rate of Ingestion Change Supervision While Eating and Drinking for Safe Swallow: Intermittent Supervision Swallowing Recommended Treatments: Compens. Strategy Educat. Recommendation for Speech: Inpatient Speech Therapy Modified Barium Swallow Study - Outpatient Comment: Pt may benefit from outpatient MBSS should concerns persist. Wire Chief Clinican/Clinical Fellow: No Supervisory Statement: I have reviewed and agree with the student/clinical fellow's documentation: N/A Speech Language Pathologist: Mehreen Alas M.A., CCC-CASUALTY CLAIM ADJUSTER
[2023-02-03 15:53] VITALS: BP 120/70; PULSE 99; RESP 18; TEMP 36; O2SAT 94
--- NOTE | 2023-02-03 19:29 | PC.RT ---
NIF -55 FVC 3.5 Good effort
[2023-02-03 19:56] VITALS: BP 129/66; PULSE 97; RESP 19; TEMP 36.4; O2SAT 94
[2023-02-04] VITALS: BP 120/71; PULSE 81; RESP 18; TEMP 36.4; O2SAT 93
[2023-02-04 03:38] VITALS: BP 126/76; PULSE 81; RESP 18; TEMP 36.3; O2SAT 94
[2023-02-04 07:36] VITALS: BP 137/80; PULSE 80; RESP 17; TEMP 36.3; O2SAT 94
[2023-02-04 07:37] LABS: Alanine Aminotransferase 9 U/L (0-40); Albumin Level 3.5 g/dL (3.5-5.0); Alkaline Phosphatase 58 U/L (39-117); Anion Gap 12 (12-20); Aspartate Amino Transferase 12 U/L (5-37); Bilirubin Direct 0.3 mg/dL (0.0-0.5); Blood Urea Nitrogen 12 mg/dL (9-16); Calcium 8.9 mg/dL (8.4-10.2); Carbon Dioxide 24 mmol/L (22-29); Chloride 107 mmol/L (96-108); Creatinine Clr Calc Pharmacy 86.3; Estimated Glomerular Filt Rate > 60; Glucose Random 93 mg/dL (60-115); Potassium 3.1 mmol/L (3.3-5.1); Sodium 140 mmol/L (135-145); Total Protein 7.4 g/dL (6.5-8.0)
--- NOTE | 2023-02-04 11:11 | PM.NEUROPN ---
Subjective Subjective Date of Service: 02/04/23 Interval History: Seen and evaluated this morning Feels weaker , tolerating diet with more difficulties swallowing and nasal regurgitation No speech problem or double vision overnight facial weakness worse No other overnight events Critical Care Time (minutes): 0 Physical Exam Vital Signs: Vital Signs: Last Vital Signs Temp 97.3 F 02/04/23 07:36 Pulse 80 02/04/23 07:36 Resp 17 02/04/23 07:36 BP 137/80 02/04/23 07:36 Pulse Ox 94 02/04/23 07:36 O2 Del Method Room Air 02/04/23 07:36 BMI result Body Mass Index 30.7 Const: Other: Constitutional : Awake, interactive, not in distress Neck : Normal inspection, Supple, tenderness over the right trapez muscle Throat mildly erythema but no pus noted Cardiovascular : RRR, no JVP, no lower extremity edema Respiratory : good bilateral air entry, no crackles, wheezes or rhonchi Gastrointestinal: soft, lax, Normal bowel sounds, Non tender Skin : Warm, Dry Neurological : Alert & oriented x3, No focal deficit , CN 2-12 within normal, no focal weakness , normal speech Neuro: Other: Bifacial weakness worse . Onable to hold any air in the mouth, weakness in neck flexors and extensors 4/5 and fatiguing of proximal limb muscles on sustained posture. DTRs 2+. Plantars flexor Objective Data Labs 02/04/23 06:25 02/04/23 06:25 Labs: Laboratory Results - last 24 hr 02/04/23 06:25 WBC 4.8 RBC 4.55 L Hgb 13.3 L Hct 40.7 L MCV 89.5 MCH 29.2 MCHC 32.7 RDW 12.7 Plt Count 258 MPV 9.4 Absolute Nucleated RBC 0.000 Nucleated RBC % (auto) 0.0 Sodium 140 Potassium 3.1 L Chloride 107 Carbon Dioxide 24 Anion Gap 12 BUN 12 Creatinine 0.82 Estim Creat Clear Calc 86.3 Estimated GFR > 60 Random Glucose 93 Calcium 8.9 Total Bilirubin 1.0 Direct Bilirubin 0.3 AST 12 ALT 9 Alkaline Phosphatase 58 Total Protein 7.4 Albumin 3.5 Progress Note: A&P Assessment and plan (1) Myasthenia gravis with exacerbation: Status: Acute Assessment and Plan: Some worsening of MG related weakness. Day 2 of IVIG. PFT stable Recommendations: start Prednisone 60mg qd po and add Pyridostigmine 60mg tid. Acetyl choline receptor Antibodies pending. Very Low probablity of C Angel Alvarado variant of GB Syndrome or brain stem lesion. Time Spent With Patient Time: Total time managing care of this patient today ____ minutes. Procedures Date of Service Date of Service: 02/04/23 Quality Stroke Does the patient have a stroke diagnosis?: No VTE Prior VTE?: No VTE Risk Level:: Medical - moderate - high VTE Device Contraindication: Treatment Not Indicated VTE Drug Contraindication: N/A - Med Ordered
[2023-02-04 11:37] VITALS: BP 120/75; PULSE 91; RESP 17; TEMP 36.5; O2SAT 95
--- NOTE | 2023-02-04 15:33 | HO.PM.IMPN ---
Subjective Subjective Date of Service: 02/04/23 Interval History: Seen and evaluated this morning Feels little weaker, difficulties balancing head tolerating diet with but reporting difficulties swallowing No speech problem or double vision overnight facial weakness notable No other overnight events Review of Systems Review of Systems: Yes all other systems are reviewed and are negative Physical Exam Vital Signs: Vital Signs: Last Vital Signs Temp 97.7 F 02/04/23 11:37 Pulse 91 02/04/23 11:37 Resp 17 02/04/23 11:37 BP 120/75 02/04/23 11:37 Pulse Ox 95 02/04/23 11:37 O2 Del Method Room Air 02/04/23 11:37 BMI result Body Mass Index 30.7 Const: Other: Constitutional : Awake, interactive, not in distress Neck : Normal inspection, Supple Throat mildly erythema but no pus noted Cardiovascular : RRR, no JVP, no lower extremity edema Respiratory : good bilateral air entry, no crackles, wheezes or rhonchi Gastrointestinal: soft, lax, Normal bowel sounds, Non tender Skin : Warm, Dry Neurological : Alert & oriented x3, No focal deficit , CN 2-12 within normal, nmild focal weakness , normal speech Objective Data Active Medications Acetaminophen (Acetaminophen 325 Mg Tablet) 650 mg PO Q24H [facility] Stop: 02/06/23 11:31 Last Admin: 02/04/23 11:35 Dose: 650 mg Documented By: ISSAC Al Hydroxide/Mg Hydroxide (Magnesium Hydrox/Alum Hydrox 30 Ml Oral.Susp) 30 ml PO Q6H PRN PRN Reason: Heartburn Last Admin: 02/03/23 21:09 Dose: 30 ml Documented By: KINDRA Cyclobenzaprine HCl (Cyclobenzaprine Hcl 5 Mg Tablet) 5 mg PO BID [facility] Last Admin: 02/04/23 08:40 Dose: 5 mg Documented By: ISSAC Diphenhydramine HCl (Diphenhydramine Hcl 50 Mg/Ml Vial) 25 mg IVPUSH Q24H [facility] Stop: 02/06/23 11:31 Last Admin: 02/04/23 11:35 Dose: 25 mg Documented By: ISSAC Enoxaparin Sodium (Enoxaparin Sodium 40 Mg/0.4 Ml Syringe) 40 mg SUBCUT Q24H [facility] Last Admin: 02/04/23 08:43 Dose: 40 mg Documented By: ISSAC Hydrocortisone Sodium Succinate (Hydrocortisone Sod Succ/Pf 100 Mg Vial) 100 mg IVPUSH Q24H [facility] Stop: 02/06/23 11:31 Last Admin: 02/04/23 11:35 Dose: 100 mg Documented By: ISSAC Immune Globulin (Gammagard 10%) 200 mls @ 43 mls/hr IV DAILY@1200 [facility] Stop: 02/05/23 16:40 Last Admin: 02/04/23 11:54 Dose: 43 mls/hr Documented By: ISSAC Immune Globulin (Gammagard 10%) 200 mls @ 43 mls/hr IV DAILY@1700 [facility] Stop: 02/05/23 21:40 Last Infusion: 02/03/23 21:46 Dose: Infused Documented By: KINDRA Immune Globulin (Gammagard 10%) 100 mls @ 43 mls/hr IV ONCE ONE Stop: 02/06/23 14:19 Methylprednisolone Sodium Succinate (Methylprednisolone Sod Succ 40 Mg/Ml Vial) 60 mg IVPUSH Q24H [facility] Last Admin: 02/04/23 12:34 Dose: 60 mg Documented By: ISSAC Morphine Sulfate (Morphine Sulfate 2 Mg/Ml Cartridge) 2 mg IVPUSH Q6H PRN; Protocol PRN Reason: Pain, Severe (Pain Scale 7-10) Last Admin: 02/02/23 02:14 Dose: 2 mg Documented By: MICHELE Ondansetron HCl (Ondansetron Hcl 4 Mg/2 Ml Vial) 4 mg IVPUSH Q6H PRN PRN Reason: Nausea and Vomiting Sodium Chloride (0.9 % Sodium Chloride Flush 3 Ml Syringe) 3 ml IVFLUSH [facility] Last Admin: 02/04/23 15:18 Dose: Not Given Documented By: ISSAC Non-Admin Reason: IV Running Labs 02/04/23 06:25 02/04/23 06:25 Labs: Laboratory Results - last 24 hr 02/04/23 06:25 MCV 89.5 MCH 29.2 MCHC 32.7 RDW 12.7 Plt Count 258 MPV 9.4 Absolute Nucleated RBC 0.000 Nucleated RBC % (auto) 0.0 Anion Gap 12 Estim Creat Clear Calc 86.3 Estimated GFR > 60 Random Glucose 93 Calcium 8.9 Total Bilirubin 1.0 Direct Bilirubin 0.3 AST 12 ALT 9 Alkaline Phosphatase 58 Total Protein 7.4 Albumin 3.5 Assessment and Plan (1) Myasthenia gravis with exacerbation: Status: Acute (2) Facial numbness: Status: Acute (3) Dysphagia: Status: Acute Plan A 72/m with no significant PMH who presents with Dysphagia, some trouble with speech/smile. Acute mysthenia gravis Dysphagia and facial numbness improving CT head negative for any stroke CT neck soft tissue negative for any massed\abscess Neuro eval appreciated, 5 days of Tx on IVIG Day 3/5 Start Methylprednisolone 60 mg daily Pending Acetylcholine receptor (AChR) antibodies Keep on IVF for now PT\OT BID Spirometry Monitor for any respiratory issues Swallowing problem Modified diet per AIRPORT SKILLED MAINTENANCE SUPERVISOR eval DVT PPx Lovenox The patient will need overnight hospital stay for treatment of acute mysthenia gravis on IVIG Time Spent With Patient Time: Total time managing care of this patient today ____ minutes. Quality Stroke Does the patient have a stroke diagnosis?: No VTE Prior VTE?: No VTE Risk Level:: Medical - moderate - high VTE Device Contraindication: Treatment Not Indicated VTE Drug Contraindication: N/A - Med Ordered
[2023-02-04 16:00] VITALS: BP 129/72; PULSE 91; RESP 18; TEMP 36.4; O2SAT 93
--- NOTE | 2023-02-04 16:06 | MHC.SL.DTX ---
Dysphagia Diet modifications: Last documented Solid diet consistencies: Chopped/Advanced (NDD3) Last documented Liquid consistency: Thin Changes made to current diet?: Yes Liquid Consistency and Strategies: Liquid Intake Recommendation: Thin Compensatory Strategies for Safe Swallow: Small Sips Compensatory Strategies for Safe Swallow(b): Sitting Upright (90 deg) No Straw Small Bites and Sips Alternate Liquids/Solids Rate of Ingestion Change Solid Food Consistency: Dietary Recommendations: Chopped/Advanced (NDD3) Additional Modifications to Solids: Oral Medication Intake: Whole with Liquid Strategies and Precautions to be Taken for Safe Swallow: Sitting Upright (90 deg) No Straw Small Bites and Sips Alternate Liquids/Solids Rate of Ingestion Change Supervision While Eating and/Drinking: Total Supervision (1:1) Foods to Avoid: Swallowing Recommended Treatments: Oral Motor Exercises Compens. Strategy Educat. Level of Impact on: Daily activities: Interpersonal interactions: Education: Employment: Community: Prognosis for Improvement: Recommendation for Speech: Inpatient Speech Therapy Modified Barium Swallow Study - Outpatient Comment: Pt may benefit from outpatient MBSS should concerns persist. Frequency/Duration: Date Range for Service Req: Timeline to reassess: Additional Comments: Treatment: Pt seen after lunch. He is not doing well. He is complaining of pain in his neck and that he is having trouble keeping his head up. Incidentally he is doing stretches and attempting strengthening exercises to alleviate these symptoms. CONSUMER BANKER spent time counseling Pt on the risk of fatigue in acute MG flare-ups. He claims understanding, however continues the exercises. He expresses similar fatigue with eating. He is able to take x 2 small bites of a banana under supervision with delay, but complete collection after the swallow. He tolerates small sips of thins with no overt s/s of aspiration reporting difficulty swallow. Pt is additionally counselled to eat small amounts at a time, especially with difficult to chew solids to combat fatigue. Pt will require continued re-inforcement of these recommendations. CONSUMER BANKER will continue ot follow. Assessment: Fiberglass Bonding Machine Tender Clinican/Clinical Fellow: No Supervisory Statement: I have reviewed and agree with the student/clinical fellow's documentation: N/A Speech Language Pathologist: David Lindo M.A., [facility]-CONSUMER BANKER
[2023-02-04 20:00] VITALS: BP 125/74; PULSE 99; RESP 18; TEMP 36.6; O2SAT 94
[2023-02-05] VITALS: BP 109/57; PULSE 77; RESP 19; TEMP 36.4; O2SAT 94
[2023-02-05 03:14] VITALS: BP 118/71; PULSE 79; RESP 18; TEMP 36.1; O2SAT 95
[2023-02-05 08:00] VITALS: BP 142/82; PULSE 81; RESP 18; TEMP 36.7; O2SAT 94
[2023-02-05 11:44] VITALS: BP 148/80; PULSE 101; RESP 18; TEMP 36.8; O2SAT 95
--- NOTE | 2023-02-05 12:55 | HO.PM.IMPN ---
Subjective Subjective Date of Service: 02/05/23 Interval History: Facial muscle weakness but overall feels better reporting difficulties balancing head and having neck pain tolerating diet with but reporting difficulties swallowing reporing double vision overnight watching TV No other overnight events Review of Systems Review of Systems: Yes all other systems are reviewed and are negative Constitutional Constitutional: Denies night sweats Physical Exam Vital Signs: Vital Signs: Last Vital Signs Temp 98.2 F 02/05/23 11:44 Pulse 101 H 02/05/23 11:44 Resp 18 02/05/23 11:44 BP 148/80 H 02/05/23 11:44 Pulse Ox 95 02/05/23 11:44 O2 Del Method Room Air 02/05/23 11:44 BMI result Body Mass Index 30.7 Const: Other: Constitutional : Awake, interactive, not in distress Neck : Normal inspection, Supple Throat mildly erythema but no pus noted Cardiovascular : RRR, no JVP, no lower extremity edema Respiratory : good bilateral air entry, no crackles, wheezes or rhonchi Gastrointestinal: soft, lax, Normal bowel sounds, Non tender Skin : Warm, Dry Neurological : Alert & oriented x3, No focal deficit , CN 2-12 within normal, nmild focal weakness , normal speech Objective Data Active Medications Acetaminophen (Acetaminophen 325 Mg Tablet) 650 mg PO Q24H [facility] Stop: 02/06/23 11:31 Last Admin: 02/05/23 11:38 Dose: 650 mg Documented By: JOEL Al Hydroxide/Mg Hydroxide (Magnesium Hydrox/Alum Hydrox 30 Ml Oral.Susp) 30 ml PO Q6H PRN PRN Reason: Heartburn Last Admin: 02/04/23 19:28 Dose: 30 ml Documented By: LURDES Cyclobenzaprine HCl (Cyclobenzaprine Hcl 5 Mg Tablet) 5 mg PO BID [facility] Last Admin: 02/05/23 09:06 Dose: 5 mg Documented By: JOEL Diphenhydramine HCl (Diphenhydramine Hcl 50 Mg/Ml Vial) 25 mg IVPUSH Q24H [facility] Stop: 02/06/23 11:31 Last Admin: 02/05/23 11:38 Dose: 25 mg Documented By: JOEL Enoxaparin Sodium (Enoxaparin Sodium 40 Mg/0.4 Ml Syringe) 40 mg SUBCUT Q24H [facility] Last Admin: 02/05/23 09:06 Dose: 40 mg Documented By: JOEL Hydrocortisone Sodium Succinate (Hydrocortisone Sod Succ/Pf 100 Mg Vial) 100 mg IVPUSH Q24H [facility] Stop: 02/06/23 11:31 Last Admin: 02/05/23 11:38 Dose: 100 mg Documented By: JOEL Immune Globulin (Gammagard 10%) 200 mls @ 43 mls/hr IV DAILY@1200 [facility] Stop: 02/05/23 16:40 Last Admin: 02/05/23 12:16 Dose: 43 mls/hr Documented By: JOEL Immune Globulin (Gammagard 10%) 200 mls @ 43 mls/hr IV DAILY@1700 [facility] Stop: 02/05/23 21:40 Last Infusion: 02/04/23 21:25 Dose: Infused Documented By: LURDES Immune Globulin ([place]amm[place]ard 10%) 100 mls @ 43 mls/hr IV ONCE ONE Stop: 02/06/23 14:19 Methylprednisolone Sodium Succinate (Methylprednisolone Sod Succ 40 Mg/Ml Vial) 60 mg IVPUSH Q24H [facility] Last Admin: 02/05/23 11:37 Dose: 60 mg Documented By: JOEL Morphine Sulfate (Morphine Sulfate 2 Mg/Ml Cartridge) 2 mg IVPUSH Q6H PRN; Protocol PRN Reason: Pain, Severe (Pain Scale 7-10) Last Admin: 02/04/23 19:26 Dose: 2 mg Documented By: LURDES Ondansetron HCl (Ondansetron Hcl 4 Mg/2 Ml Vial) 4 mg IVPUSH Q6H PRN PRN Reason: Nausea and Vomiting Sodium Chloride (0.9 % Sodium Chloride Flush 3 Ml Syringe) [facility] Last Admin: 02/05/23 09:06 Dose: 3 ml Documented By: JOEL Labs 02/04/23 06:25 02/04/23 06:25 Assessment and Plan (1) Myasthenia gravis with exacerbation: Status: Acute (2) Facial numbness: Status: Acute (3) Dysphagia: Status: Acute Plan A 72/m with no significant PMH who presents with Dysphagia, some trouble with speech/smile. Acute mysthenia gravis Dysphagia and facial numbness improving CT head negative for any stroke CT neck soft tissue negative for any massed\abscess Neuro eval appreciated, 5 days of Tx on IVIG Day 4/5 Methylprednisolone 60 mg daily Day 2 Pending Acetylcholine receptor (AChR) antibodies dc IVF PT\OT BID Spirometry ; Stable readings Monitor for any respiratory issues Swallowing problem Modified diet per HUMAN ANATOMY TEACHER eval DVT PPx Lovenox The patient will need overnight hospital stay for treatment of acute mysthenia gravis on IVIG Time Spent With Patient Time: Total time managing care of this patient today ____ minutes. Quality Stroke Does the patient have a stroke diagnosis?: No VTE Prior VTE?: No VTE Risk Level:: Medical - moderate - high VTE Device Contraindication: Treatment Not Indicated VTE Drug Contraindication: N/A - Med Ordered
--- NOTE | 2023-02-05 13:48 | MHC.CM.PN ---
EMR REVIEWED AND PER MD ROUNDS, PT IS NOT MEDICALLY CLEAR FOR DC (CONTINUES WITH IVIG RX) CM WILL CONTINUE TO FOLLOW FOR DC PLAN/NEEDS.
[2023-02-05 15:58] VITALS: BP 130/87; PULSE 98; RESP 16; TEMP 36.3; O2SAT 95
--- NOTE | 2023-02-05 17:37 | MHC.SL.SWA ---
Risk of Aspiration Due to: Neurological Condition Dysphasia Diet Status: DOWNGRADE to NPO pending METALLURGICAL ANALYST re-eval Liquid Consistency and Strategies for Safe Swallow: Liquid Intake Recommendation: NPO Solid Food Consistency: Dietary Recommendations: NPO Oral Medication Intake: NPO Please contact the pharmacy regarding appropriate crushable or liquid drug formulations that are available whenever modified delivery is recommended. Compensatory Strategies and Precautions to be Taken for Safe Swallow: Sitting Upright (90 deg) No Straw Small Bites and Sips Alternate Liquids/Solids Rate of Ingestion Change Supervision While Eating and Drinking for Safe Swallow: PO with METALLURGICAL ANALYST Foods to Avoid: Swallowing Recommended Treatments: Oral Motor Exercises Compens. Strategy Educat. Recommendation for Speech: Inpatient Speech Therapy Modified Barium Swallow Study - Outpatient Patient presenting w/ frequent and consistent throat clearing during PO trials. Per conversation with MD, recommend NPO pending re-evaluation by METALLURGICAL ANALYST tomorrow. Per MD, ice chips and sips of water OK. 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
[2023-02-05 19:49] VITALS: BP 113/72; PULSE 84; RESP 18; TEMP 36.4; O2SAT 93
[2023-02-06] VITALS (7 sets, daily range): BP systolic 112–144; BP diastolic 58–83; PULSE 80–98; RESP 16–18; TEMP 36–36.7; O2SAT 93–97
[2023-02-06 07:19] LABS: Anion Gap 13 (12-20); Blood Urea Nitrogen 14 mg/dL (9-16); Carbon Dioxide 25 mmol/L (22-29); Chloride 104 mmol/L (96-108); Creatinine Clr Calc Pharmacy 83.2; Estimated Glomerular Filt Rate > 60; Glucose Random 102 mg/dL (60-115); Potassium 3.9 mmol/L (3.3-5.1); Sodium 138 mmol/L (135-145)
[2023-02-06] MEDS: Enoxaparin Sodium 40 MG/0.4 ML SYRINGE SUBCUT (09:24)
--- NOTE | 2023-02-06 11:15 | P.PNIM_ITS ---
Subjective Subjective Date of Service: 02/06/23 Interval History: weakness, dysphagia Physical Exam 2 Vital Signs: Vital Signs: Last Vital Signs Temp 98.1 F 02/06/23 07:51 Pulse 80 02/06/23 07:51 Resp 17 02/06/23 07:51 BP 144/82 H 02/06/23 07:51 Pulse Ox 94 02/06/23 07:51 O2 Del Method Room Air 02/06/23 07:51 BMI result Body Mass Index 30.7 Const: Other: Constitutional : Awake, interactive, not in distress Neck : Normal inspection, Supple Throat mildly erythema but no pus noted Cardiovascular : RRR, no JVP, no lower extremity edema Respiratory : good bilateral air entry, no crackles, wheezes or rhonchi Gastrointestinal: soft, lax, Normal bowel sounds, Non tender Skin : Warm, Dry Neurological : Alert & oriented x3, No focal deficit , CN 2-12 within normal, nmild focal weakness , normal speech Objective Data Active Medications Acetaminophen (Acetaminophen 325 Mg Tablet) 650 mg PO Q24H [facility] Stop: 02/06/23 11:31 Last Admin: 02/05/23 11:38 Dose: 650 mg Documented By: JOEL Al Hydroxide/Mg Hydroxide (Magnesium Hydrox/Alum Hydrox 30 Ml Oral.Susp) 30 ml PO Q6H PRN PRN Reason: Heartburn Last Admin: 02/04/23 19:28 Dose: 30 ml Documented By: LURDES Cyclobenzaprine HCl (Cyclobenzaprine Hcl 5 Mg Tablet) 5 mg PO BID [facility] Last Admin: 02/05/23 21:46 Dose: Not Given Documented By: PIETRO Non-Admin Reason: NPO Diphenhydramine HCl (Diphenhydramine Hcl 50 Mg/Ml Vial) 25 mg IVPUSH Q24H [facility] Stop: 02/06/23 11:31 Last Admin: 02/05/23 11:38 Dose: 25 mg Documented By: JOEL Enoxaparin Sodium (Enoxaparin Sodium 40 Mg/0.4 Ml Syringe) 40 mg SUBCUT Q24H [facility] Last Admin: 02/06/23 09:24 Dose: 40 mg Documented By: LIZETH Immune Globulin (Gammagard 10%) 100 mls @ 43 mls/hr IV ONCE ONE Stop: 02/06/23 14:19 Morphine Sulfate (Morphine Sulfate 2 Mg/Ml Cartridge) 2 mg IVPUSH Q6H PRN; Protocol PRN Reason: Pain, Severe (Pain Scale 7-10) Last Admin: 02/04/23 19:26 Dose: 2 mg Documented By: LURDES Ondansetron HCl (Ondansetron Hcl 4 Mg/2 Ml Vial) 4 mg IVPUSH Q6H PRN PRN Reason: Nausea and Vomiting Prednisone (Prednisone 20 Mg Tablet) 60 mg PO DAILY [facility] Pyridostigmine [place] (Pyridostigmine [place] 60 Mg Tablet) 60 mg PO TID [facility] Sodium Chloride (0.9 % Sodium Chloride Flush 3 Ml Syringe) 3 ml IVFLUSH QSHIFT [facility] Last Admin: 02/06/23 09:24 Dose: 3 ml Documented By: LIZETH Labs 02/04/23 06:25 02/06/23 06:26 Labs: Laboratory Results - last 24 hr 02/06/23 06:26 Anion Gap 13 Estim Creat Clear Calc 83.2 Estimated GFR > 60 Random Glucose 102 Calcium 9.0 Assessment and Plan (1) Myasthenia gravis with exacerbation: Status: Acute (2) Facial numbness: Status: Acute (3) Dysphagia: Status: Acute Plan A 72/m with no significant PMH who presented with Dysphagia, some trouble with speech/smile. 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 Quality Stroke Does the patient have a stroke diagnosis?: No VTE Prior VTE?: No VTE Risk Level:: Medical - moderate - high VTE Device Contraindication: Treatment Not Indicated VTE Drug Contraindication: N/A - Med Ordered
[2023-02-06] MEDS: predniSONE 20 MG TABLET 60 MG PO (11:24)
[2023-02-06] MEDS: pyRIDostigmine bromide 60 MG TABLET PO ×3 (11:24→21:02)
[2023-02-06] MEDS: Acetaminophen 325 MG TABLET 650 MG PO (11:25)
[2023-02-06] MEDS: diphenhydrAMINE HCL 50 MG/ML VIAL 25 MG IVPUSH (11:26)
[2023-02-06] MEDS: Cyclobenzaprine HCl 5 MG TABLET PO ×2 (11:28→21:02)
[2023-02-06] MEDS: Immun Glob G(IgG)/Gly/IGA Ov50 100 ML IV (12:07)
--- NOTE | 2023-02-06 12:14 | MHC.CM.PN ---
PER MEDICAL ROUNDS, PATIENT IS STILL ACUTE NO PLAN FOR DC. CM FOLLOWING
--- NOTE | 2023-02-06 17:11 | MHC.SL.SWA ---
Speech Pathologist Impression: Risk of Aspiration Due to: Neurological Condition Dysphasia Diet Status: Recommend UPGRADE to Ground Mechanical/Altered (NDD2) with NECTAR THICK liquids, pills crushed in puree. Liquid Consistency and Strategies for Safe Swallow: Liquid Intake Recommendation: [place] Thick Liquid Intake Strategies: Small Sips Solid Food Consistency: Dietary Recommendations: Grnd/Mech Altered (NDD2) Additional Modifications to Solid Foods: Take rest breaks when eating, as he is likely to quickly fatigue with effort, secondary to DX Myasthenia Gravis. Alternate liquids and solids. Oral Medication Intake: Crushed with Puree Please contact the pharmacy regarding appropriate crushable or liquid drug formulations that are available whenever modified delivery is recommended. Compensatory Strategies and Precautions to be Taken for Safe Swallow: Sitting Upright (90 deg) Liquids from Cup Small Bites and Sips Alternate Liquids/Solids Supervision While Eating and Drinking for Safe Swallow: Intermittent Supervision Foods to Avoid: Hard, difficult to chew solids, mixed consistencies. Swallowing Recommended Treatments: Compens. Strategy Educat. Recommendation for Speech: Inpatient Speech Therapy Modified Barium Swallow Study - Outpatient Comment: Patient seen this morning, had been made NPO yesterday by DOOR TO DOOR SELLING AGENT due to concerns regarding throat clearing noted on all consistencies and patient's c/o pain with swallowing. Patient was awake and walking around room at onset of session. Patient presented as anxious about his swallowing difficulties, but very cooperative and communicative throughout. Patient again stated that he has pain when swallowing, pointing to solar plexus. Patient also reported it comes up through my nose and also ear pain with hearing loss (sound is muffled ) on L Ear. Patient was given tsp amount of water, with patient producing timely oral phase, mild delay of swallow, reduced laryngeal elevation, and complaint of water going up nose, rubbing then blowing nose with tissue, as well as throat clearing. Patient was then given tsp of nectar thick liquid, which he reported went better producing timely oral phase, mild delay of swallow, no clinical signs of aspiration, no fluid in nasopharynx. Patient then took several independent cup sips with similar response and personal report. Patient was given tsp amounts of puree, with patient producing timely oral and pharyngeal phase, no complaint of nasal reflux, no complaint of pain on swallow. Patient was then encouraged to take softened cracker in puree, which he initially stated I'm afraid it will be too hard and hurt, but was re-assured it was softened. Patient then produced a timely, rotational chew, timely oral phase, timely swallow. Patient declined more advanced textures due to expressed anxiety about pain when swallowing. Recommended again to patient that he take rest breaks when eating, as he is likely to quickly fatigue with effort, secondary to DX Myasthenia Gravis. Frequency/Duration: Date Range for Service Req: Timeline to reassess: Service Technician Copier Clinican/Clinical Fellow: No Supervisory Statement: I have reviewed and agree with the student/clinical fellow's documentation: N/A Speech Language Pathologist: Chelsi Kathleen M.A., CCC-DOOR TO DOOR SELLING AGENT
[2023-02-06] MEDS: Magnesium Hydrox/Alum Hydrox 30 ML ORAL.SUSP PO (19:20)
[2023-02-06] MEDS: Morphine Sulfate 2 MG/ML CARTRIDGE IVPUSH (23:37)
[2023-02-07 04:00] VITALS: BP 121/72; PULSE 88; RESP 16; TEMP 36.1; O2SAT 94
[2023-02-07 06:23] LABS: Hematocrit 39.5 % (42.0-52.0); Mean Corpuscular HGB Conc 32.9 g/dl (31.0-36.0); Mean Corpuscular Hemoglobin 29.5 pg (27.0-33.0); Mean Corpuscular Volume 89.6 fL (80.0-98.0); Mean Platelet Volume 9.8 fL (9.4-12.4); Platelet Count 287 X10*3/uL (160-400); Red Blood Count 4.41 X10*6/uL (4.60-5.80); Red Cell Distribution Width 12.8 % (11.0-16.0); White Blood Count 7.2 X10*3/uL (4.8-10.8)
[2023-02-07 06:24] LABS: Anion Gap 12 (12-20); Blood Urea Nitrogen 13 mg/dL (9-16); Calcium 8.6 mg/dL (8.4-10.2); Carbon Dioxide 26 mmol/L (22-29); Chloride 104 mmol/L (96-108); Creatinine Clr Calc Pharmacy 94.3; Estimated Glomerular Filt Rate > 60; Glucose Fasting 101 mg/dL (60-99); Potassium 3.9 mmol/L (3.3-5.1); Sodium 138 mmol/L (135-145)
[2023-02-07 07:02] VITALS: BP 163/85; PULSE 83; RESP 18; TEMP 36.7; O2SAT 9
[2023-02-07] MEDS: pyRIDostigmine bromide 60 MG TABLET PO ×3 (07:58→21:55)
[2023-02-07] MEDS: Cyclobenzaprine HCl 5 MG TABLET PO ×2 (07:58→21:55)
[2023-02-07] MEDS: predniSONE 20 MG TABLET 60 MG PO (07:58)
[2023-02-07] MEDS: Enoxaparin Sodium 40 MG/0.4 ML SYRINGE SUBCUT (07:58)
--- NOTE | 2023-02-07 10:37 | P.PNIM_ITS ---
Subjective Subjective Date of Service: 02/07/23 Interval History: weakness Physical Exam 2 Vital Signs: Vital Signs: Last Vital Signs Temp 98.1 F 02/07/23 07:02 Pulse 83 02/07/23 07:02 Resp 18 02/07/23 07:02 BP 163/85 H 02/07/23 07:02 Pulse Ox 9 L 02/07/23 07:02 O2 Del Method Room Air 02/07/23 07:02 BMI result Body Mass Index 30.7 Const: Other: Constitutional : Awake, interactive, not in distress Neck : Normal inspection, Supple Throat mildly erythema but no pus noted Cardiovascular : RRR, no JVP, no lower extremity edema Respiratory : good bilateral air entry, no crackles, wheezes or rhonchi Gastrointestinal: soft, lax, Normal bowel sounds, Non tender Skin : Warm, Dry Neurological : Alert & oriented x3, No focal deficit , CN 2-12 within normal, nmild focal weakness , normal speech Objective Data Active Medications Al Hydroxide/Mg Hydroxide (Magnesium Hydrox/Alum Hydrox 30 Ml Oral.Susp) 30 ml PO Q6H PRN PRN Reason: Heartburn Last Admin: 02/06/23 19:20 Dose: 30 ml Documented By: TOÑO Cyclobenzaprine HCl (Cyclobenzaprine Hcl 5 Mg Tablet) 5 mg PO BID [facility] Last Admin: 02/07/23 07:58 Dose: 5 mg Documented By: LILLIE Enoxaparin Sodium (Enoxaparin Sodium 40 Mg/0.4 Ml Syringe) 40 mg SUBCUT Q24H [facility] Last Admin: 02/07/23 07:58 Dose: 40 mg Documented By: LILLIE Ondansetron HCl (Ondansetron Hcl 4 Mg/2 Ml Vial) 4 mg IVPUSH Q6H PRN PRN Reason: Nausea and Vomiting Prednisone (Prednisone 20 Mg Tablet) 60 mg PO DAILY [facility] Last Admin: 02/07/23 07:58 Dose: 60 mg Documented By: LILLIE Pyridostigmine [place] (Pyridostigmine [place] 60 Mg Tablet) 60 mg PO TID [facility] Last Admin: 02/07/23 07:58 Dose: 60 mg Documented By: LILLIE Sodium Chloride (0.9 % Sodium Chloride Flush 3 Ml Syringe) 3 ml IVFLUSH QSHIFT [facility] Last Admin: 02/07/23 08:01 Dose: 3 ml Documented By: LILLIE Labs 02/07/23 05:23 02/07/23 05:23 Labs: Laboratory Results - last 24 hr 02/07/23 05:23 MCV 89.6 MCH 29.5 MCHC 32.9 RDW 12.8 Plt Count 287 MPV 9.8 Absolute Nucleated RBC 0.000 Nucleated RBC % (auto) 0.0 Anion Gap 12 Estim Creat Clear Calc 94.3 Estimated GFR > 60 Fasting Glucose 101 H Calcium 8.6 Assessment and Plan (1) Myasthenia gravis with exacerbation: Status: Acute (2) Facial numbness: Status: Acute (3) Dysphagia: Status: Acute Plan A 72/m with no significant PMH who presented with Dysphagia, some trouble with speech/smile. 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 Quality Stroke Does the patient have a stroke diagnosis?: No VTE Prior VTE?: No VTE Risk Level:: Medical - moderate - high VTE Device Contraindication: Treatment Not Indicated VTE Drug Contraindication: N/A - Med Ordered
--- NOTE | 2023-02-07 10:37 | MHC.SL.SWA ---
Speech Pathologist Impression: Risk of aspiration, oropharyngeal dysphagia Risk of Aspiration Due to: Neurological Condition Dysphasia Diet Status: Recommend UPGRADE to Ground Mechanical/Altered (NDD2) with NECTAR THICK liquids, pills crushed in puree. Liquid Consistency and Strategies for Safe Swallow: Liquid Intake Recommendation: [place] Thick Liquid Intake Strategies: Small Sips Solid Food Consistency: Dietary Recommendations: Grnd/Mech Altered (NDD2) Additional Modifications to Solid Foods: Take rest breaks when eating, as he is likely to quickly fatigue with effort, secondary to DX Myasthenia Gravis. Alternate liquids and solids. Oral Medication Intake: Crushed with Puree Please contact the pharmacy regarding appropriate crushable or liquid drug formulations that are available whenever modified delivery is recommended. Compensatory Strategies and Precautions to be Taken for Safe Swallow: Sitting Upright (90 deg) Liquids from Cup Small Bites and Sips Alternate Liquids/Solids Supervision While Eating and Drinking for Safe Swallow: Intermittent Supervision Foods to Avoid: Hard, difficult to chew solids, mixed consistencies. Swallowing Recommended Treatments: Compens. Strategy Educat. Recommendation for Speech: Inpatient Speech Therapy Modified Barium Swallow Study - Outpatient Comment: Pt may benefit from MBSS should concerns persist. Purification Operator Helper Clinican/Clinical Fellow: No Supervisory Statement: I have reviewed and agree with the student/clinical fellow's documentation: N/A Speech Language Pathologist: Mehreen Alas M.A., CCC-OFFICE MACHINE SERVICE SUPERVISOR
--- NOTE | 2023-02-07 11:47 | MHC.CM.PN ---
PER MD ROUNDS, PT IS EXPECTED TO BE READY TO DC TOMORROW PT HAS BEEN CLEARED BY PHYSICAL THERAPY TO DC HOME [facility] WILL BE OFFERED
[2023-02-07 11:50] VITALS: BP 121/75; PULSE 94; RESP 20; TEMP 36.6; O2SAT 93
[2023-02-07 15:13] VITALS: BP 152/83; PULSE 102; RESP 18; TEMP 36.8; O2SAT 95
[2023-02-07 19:32] VITALS: BP 145/82; PULSE 98; RESP 20; TEMP 36.5; O2SAT 95
[2023-02-07 23:42] VITALS: BP 114/67; PULSE 87; RESP 20; TEMP 36.6; O2SAT 95
[2023-02-08 03:16] VITALS: BP 140/85; PULSE 92; RESP 20; TEMP 36.9; O2SAT 95
[2023-02-08 07:36] VITALS: BP 134/92; PULSE 96; RESP 20; TEMP 36.4; O2SAT 96
[2023-02-08] MEDS: Cyclobenzaprine HCl 5 MG TABLET PO (09:52)
[2023-02-08] MEDS: predniSONE 20 MG TABLET 60 MG PO (09:52)
[2023-02-08] MEDS: pyRIDostigmine bromide 60 MG TABLET PO (09:53)
--- NOTE | 2023-02-08 10:15 | P.DS_ITS ---
DS: Providers Provider Date of Service: 02/08/23 Date of admission: 02/02/23 08:34 Primary care physician: None Physician Consults: 02/02/23 00:05 Consult to Gastroenterology Routine Consulting Provider: Porter Nam Reason for consultation: dysphagia Has provider been notified: No 02/02/23 00:06 Consult to Neurology Routine Consulting Provider: [facility] Reason for consultation: trouble swallowing, facial weakness ? MG DS: Diagnosis Discharge Diagnosis (1) Myasthenia gravis with exacerbation: Status: Acute (2) Facial numbness: Status: Acute (3) Dysphagia: Status: Acute DS: Summary Hospital Course Hospital Course: from initial hpi: 72-year-old male with no known chronic medical conditions presents with a week- long history of worsening dysphagia (difficulty swallowing solids) associated with some discomfort. He also reports a feeling of facial paralysis, particularly with smiling and speaking for the last 2 days, although his speech appears intact to me other than his strong [place] accent. He has normal motor strength and slightly blurred vision. CT head no stroke, Soft Tissue CT of neck: no acute abnormalities hospital course: Patient was admitted for suspected acute myasthenia gravis P CT head was negative. CT neck was negative seen by neuro recommended 5 days of IVIG which was completed, prednisone 60 mg daily and Mestinon 60 mg t.i.d. he will follow up with them outpatient follow-up acetylcholine receptor antibodies and further treatment patient's inspiratory effort is back to baseline, still having some dysphagia, speech is recommended ndd2 solids and nectar thick liquid. Time Spent with Patient Time attestation: Total time managing care of this patient today ____ minutes. Discharge coordination time: Greater than 30 minutes Quality: Safe Use of Opioids Does Pt have an Active Cancer Diagnosis on the Problem List?: No Quality: Stroke Does the patient have a stroke diagnosis?: No Physical Exam Vital Signs: Vital Signs: Last Vital Signs Temp 97.6 F 02/08/23 07:36 Pulse 96 02/08/23 07:36 Resp 20 02/08/23 07:36 BP 134/92 H 02/08/23 07:36 Pulse Ox 96 02/08/23 07:36 O2 Del Method Room Air 02/08/23 03:16 BMI result Body Mass Index 30.7 Const: Other: Constitutional : Awake, interactive, not in distress Neck : Normal inspection, Supple Throat mildly erythema but no pus noted Cardiovascular : RRR, no JVP, no lower extremity edema Respiratory : good bilateral air entry, no crackles, wheezes or rhonchi Gastrointestinal: soft, lax, Normal bowel sounds, Non tender Skin : Warm, Dry Neurological : Alert & oriented x3, No focal deficit , CN 2-12 within normal, nmild focal weakness , normal speech Discharge Plan Discharge Anticipated Discharge Date/Time: 02/08/23 10:10 Patient Disposition: Home, Self-Care Discharge Diagnosis: myasthenia Referrals: Smith Mitchell MD [Physician] - 1 Week Physician,None [Primary Care Provider] - 1 Week Discharge Medications: New prednisone 20 mg Tablet 60 mg PO DAILY Qty: 30 0RF pyridostigmine bromide 60 mg Tablet 60 mg PO TID Qty: 90 0RF Discharge Orders: Discharge Order (Routine); Ordered 02/08/23 Ordered By: Alejandro Rascon Diet: NDD2 solids, nectar thick Activity on Discharge: As tolerated Stand Alone Forms: Patient Portal Discharge page Care Plan Goals: recovery Health Concerns: myasthenia gravis Plan of Treatment: mestinon, prednisone, follow up neuro, follow up acetylcholine R antibodies Assessment: see above
[2023-02-11 02:08] LABS: Acetylcholine Receptor Binding 5.83 nmol/L
[2023-02-11 14:54] LABS: Acetylcholine Recept. Blocking 36 (<15)
[2023-02-12 19:32] LABS: Acetylcholine Recep Modulating 77
== END 2023-02-08 10:42 | disposition home or self-care (01) | DRG 57 ==
LOC: HO.ED 22:43 → HO.EDOVER 02-02 00:04 → HO.S3 02-02 21:08
PROVIDERS: Student in an Organized Health Care Education/Training Program; Admitting Provider Internal Medicine; Emergency Provider Emergency Medicine; Visit Provider Internal Medicine
DX: G70.01 Myasthenia gravis with (acute) exacerbation (principal); R13.10 Dysphagia, unspecified; R20.0 Anesthesia of skin
CPT/HCPCS: 36415; 70450; 70490; 80048; 80076; 81001; 82550; 82947; 83519; 83735; 84484; 85025; 85027; 85610; 85730; 90686; 92526; 92610; 93005; 94010; 97110; 97116; 97161; 97166; 97530; 99221; 99285; J1200; J1569; J1650; J2270; J2920

== ENCOUNTER → 2023-02-02 08:34 | Outpatient (BNV) | payer SELFPAY | PROVIDERS: Admitting Provider Internal Medicine; Emergency Provider Emergency Medicine; Visit Provider Student in an Organized Health Care Education/Training Program | DX: R13.10 Dysphagia, unspecified (principal) | CPT/HCPCS: 99223; 99232; 99233; 99239 ==

== ENCOUNTER 2023-09-19 19:34 | Emergency (ER) | payer MEDICARE, SELFPAY ==
--- NOTE | 2023-09-19 | ECG_ITS ---
Test Reason : facial weakness Blood Pressure : / mmHG Vent. Rate : 094 BPM Atrial Rate : 094 BPM P-R Int : 144 ms QRS Dur : 084 ms QT Int : 358 ms P-R-T Axes : 045 012 009 degrees QTc Int : 447 ms Sinus rhythm with occasional Premature ventricular complexes and Premature atrial complexes Otherwise normal ECG When compared with ECG of 01-FEB-2023 19:39, Premature ventricular complexes are now Present Premature atrial complexes are now Present Referred By: Natalia Saldivar Electronically Signed By:Audie Menezes
--- NOTE | ~2023-09-19 | CT_ITS ---
EXAMINATION: CT HEAD WITHOUT CONTRAST CLINICAL INFORMATION: Headache, facial weakness COMPARISON: CT head 02/01/2023. TECHNIQUE: Contiguous axial imaging was performed from the skull base to vertex without intravenous administration of contrast. This CT examination was performed using dose optimization techniques as appropriate, variously including the following: *Automated exposure control *Adjustment of mA and/or kV according to patient size (this includes techniques or standardized protocols for targeted exams where dose is matched to indication/reason for exam; i.e. extremities or head) *Use of iterative reconstruction technique DLP: 767 mGy-cm FINDINGS: No intracranial hemorrhage, tumors or acute infarcts noted. Moderate diffuse commensurate prominence of ventricles and sulci. Moderate segmental calcific atherosclerosis of the cavernous portions of the internal carotid arteries. 2.5 cm rounded density within the right maxillary sinus likely representing mucosal retention cyst. Normal appearance of the orbits and globes. Partial opacification of the left middle ear cavity and opacification of scattered left mastoid air cells. No gross erosion of the scutum identified. Prussak's space is opacified. CT/CT head/brain wo IV con IMPRESSION: *No acute intracranial abnormalities. *Fluid within the left middle ear cavity and scattered left mastoid air cells. In the correct clinical setting, findings could correlate with left otitis media and mastoiditis. Alternatively, findings could represent retained aseptic debris.
[2023-09-19 20:05] VITALS: BP 130/81; PULSE 100; RESP 16; TEMP 36.9; O2SAT 97; BMI 31.5
--- NOTE | 2023-09-19 20:06 | ED_ITS ---
HPI - General Adult General Chief complaint: General Medical Stated complaint: sore throat, not eating, back/neck pain Time Seen by Provider: 09/20/23 04:10 History of Present Illness HPI narrative: The patient is a 73-year-old male who was hospitalized last fall in January of 2023 for a first-time episode of myasthenia gravis. He was hospitalized from February 02 through February 08. At discharge he was placed on prednisone and pyridostigmine bromide. The pyridostigmine bromide was a 1 month supply. The patient has had no follow up appointments since his hospitalization and he has not been on any medications since the medications from the hospitalization ran out. He does not have a primary care doctor. The patient says that he got much better on the medications. About a week ago the patient started to experience a recurrence of the same symptoms that he had in January. He feels a general sense of weakness. He also feels that he is having difficulty swallowing because he feels that the muscles of his swallowing mechanism are not working properly. He also feels that his eyelids are very weak. Feels that his left ear has been blocked for about 2 weeks. He has had no fevers. 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 He has not have a primary care doctor Related Data Home Medications ?Medication ?Instructions ?Recorded ?Confirmed esomeprazole magnesium 20 mg 20 mg PO DAILY 09/20/23 09/20/23 capsule,delayed release (Nexium 24HR) multivitamin 1 tab PO DAILY 09/20/23 09/20/23 Allergies Allergy/AdvReac Type Severity Reaction Status Date / Time No Known Allergies Allergy Verified 09/19/23 20:15 Review of Systems 2 Review of Systems: Yes all other systems are reviewed and are negative [facility] Social History Social History Household Members: None Housing: House Alcohol intake: never Patient Tobacco Use Status: Never used Tobacco Smoked in Last 30 Days: No Use of substances other than those prescribed or required for medical reasons: No Advance Directives: No Advance Directives Information Provided: Yes service: No Physical Exam ED Vital Signs: Vital Signs - 24 hr 09/19/23 20:05 09/20/23 04:26 09/20/23 05:50 Temperature 98.4 F 98.4 F 97.4 F Pulse Rate 100 83 77 Respiratory Rate 16 20 16 Blood Pressure 130/81 142/87 H 125/73 Pulse Oximetry 97 97 97 Oxygen Delivery Method Room Air Room Air Room Air 09/20/23 08:00 Temperature 97.9 F Pulse Rate 83 Respiratory Rate 18 Blood Pressure 114/63 Pulse Oximetry 96 Oxygen Delivery Method Room Air BMI result Body Mass Index 31.5 Const Other: The patient is awake and alert. He does not seem in obvious distress but his speech sounds weak. HENMT Other: There is no facial asymmetry. The patient seems to have weakness of the eyebrows and the eyelids. He can not close his eyes. His ear canals are clear of debris. Tympanic membranes are fairly unremarkable. There is some very slight erythema to the umbo of the left tympanic membrane. No bulging or obvious deformity Eyes Other: Pupils are round equal. The patient's eyelids a seemed very weak and he can not fully close his eyes Neck Other: No adenopathy. Resp Effort & Inspection: normal respiratory effort Auscultation: clear to auscultation bilaterally Cardio Rate: regular rate Rhythm: regular rhythm Heart sounds: S1 normal heart sound present and S2 normal heart sound present Skin Other: Skin is dry and unremarkable Neuro Other: The patient is awake and alert. His speech is weak. He has facial weakness which is primarily manifested with weakness of movement of the eyebrows and the eyelids. He can not fully close his eyes. His voice is weak. There is no facial asymmetry. His extremities seem to have intact strength. Extrem Other: No peripheral edema Course Course Course Narrative: This is an RME: Additional HPI, ROS, PE not included below will be deferred to primary provider. RME assessment and note performed by: Natalia Saldivar PA-C This is a [id number], with a hx of myasthenia gravis (admission on 02/01), who presents to the ER with complaints of facial weakness, headache, neck pain and back pain. Pt has a history of myasthenia gravis and was admitted in the fall. His symptoms fully resolved until about 1 week ago where he noticed gradual onset of facial weakness. Patient unable to fully close his eyes, and he is unable to swallow, negative pronator drift, pupils equal, he is ambulatory with steady gait. Reevaluation(s) Reevaluation #1: [facility] unable to take the patient in transfer. Will reach out to [facility]. Time: 12:11 Reevaluation #2: ass decline transfer immediately, will reach out to [facility]. Time: 12:14 Reevaluation #3: I discussed the case with [facility], they are agreeable for transfer ED to ED, under Dr Hdez. Images were pushed over the [facility] and ALS transport set up. Time: 12:45 Medications Administered Generic Name Dose Route Start Last Admin Trade Name Freq PRN Reason Stop Dose Admin Immune Globulin 300 mls @ 44 mls/hr 09/20/23 12:00 09/20/23 11:49 Gammagard 10% IV 09/24/23 18:50 44 mls/hr DAILY@1200 STEFF Administration As Directed Discontinued Medications Generic Name Dose Route Start Last Admin Trade Name Freq PRN Reason Stop Dose Admin Sodium Chloride 1,000 mls @ 999 mls/hr 09/20/23 08:45 09/20/23 10:06 Ns IV 09/20/23 09:45 Infused .Q1H1M STEFF Infusion Medical Decision Making Medical Decision Making [facility] Narrative: The patient is a 73-year-old male with a history of myasthenia gravis that was first diagnosed last fall in January of 2023. He did not arrange any follow-up appointments after his hospitalization and he has not been on any medications for several months. He presents with 1 week of worsening symptoms of difficulty swallowing and speaking and moving his eyelids and eyebrows. He says that his symptoms currently are similar to the symptoms he had when he was hospitalized here in January but more severe. Dr. Waddell of Neurology was consulted and the hospitalist requested and NIF. NIF was low at 12. Dr. Waddell saw the patient and has recommended IVIG 30 g daily for 5 days. This has been ordered. I contacted Dr. Lo of the ICU who did not feel there were any ICU beds available for monitoring in the ICU. Dr. Waddell thought that the patient could probably be reasonably monitored in [facility]. 11:[address] Waddell felt that the patient's respiratory status was sufficiently tenuous that ICU admission was in the patient's best interest. Therefore he is now recommending that the patient be transferred to a facility with an ICU able to take the patient. Lab Data 09/19/23 20:57 09/19/23 20:57 Labs: Lab Results 09/19/23 09/20/23 Range/Units 20:57 05:50 WBC 8.6 (4.8-10.8) X10*3/uL RBC 4.54 L (4.60-5.80) X10*6/uL Hgb 13.7 L (14.0-18.0) g/dl Hct 40.5 L (42.0-52.0) % MCV 89.2 (80.0-98.0) fL MCH 30.2 (27.0-33.0) pg MCHC 33.8 (31.0-36.0) g/dl RDW 12.9 (11.0-16.0) % Plt Count 269 (160-400) X10*3/uL MPV 8.9 L (9.4-12.4) fL Immature Gran % (Auto) 0.4 (0.0-0.4) % Neut % (Auto) 65.4 (45-73) % Lymph % (Auto) 24.3 (20-40) % [place] % (Auto) 7.5 (2-11) % Eos % (Auto) 1.3 (0-4) % Baso % (Auto) 1.1 (0-2) % Lymph # (Auto) 2.1 (1.2-4.9) X10*3/uL [place] # (Auto) 0.6 (0.1-1.2) X10*3/uL Eos # (Auto) 0.1 (0.0-0.4) X10*3/uL Baso # (Auto) 0.1 (0.0-0.2) X10*3/uL Abs Immat Gran (auto) 0.03 (0.00-0.03) X10*3/uL Absolute Neuts (auto) 5.6 (2.0-8.3) x10*3/uL Absolute Nucleated RBC 0.000 (0.0-0.012) X10*3/uL Nucleated RBC % (auto) 0.0 (0.0-0.2) /100WBC ESR 17 H (0-15) MM/HR PT 11.9 (11.1-13.3) SEC INR 1.0 (0.9-1.1) APTT 34.1 (26.0-36.8) SEC Sodium 144 (135-145) mmol/L Potassium 3.4 (3.3-5.1) mmol/L Chloride 109 H (96-108) mmol/L Carbon Dioxide 27 (22-29) mmol/L Anion Gap 11 L (12-20) BUN 14 (9-16) mg/dL Creatinine 0.90 (0.5-1.4) mg/dL Estim Creat Clear Calc 78.4 Estimated GFR > 60 Random Glucose 120 H (60-115) mg/dL Calcium 9.2 D (8.4-10.2) mg/dL Total Bilirubin 1.1 H (0.0-1.0) mg/dL AST 16 (5-37) U/L ALT 13 (0-40) U/L Alkaline Phosphatase 69 (39-117) U/L Troponin I High Sens 3.0 (<3.5-35.0) ng/L C-Reactive Protein 0.26 (< or = 0.50) mg/dL Total Protein 7.0 (6.5-8.0) g/dL Albumin 4.3 (3.5-5.0) g/dL Urine Color Yellow Urine Appearance Clear Urine pH 5.5 (5.0-9.0) Ur Specific [place] 1.025 (1.005-1.025) Urine Protein 30 (1+) H (Neg-Trace) mg/dL Urine Glucose (UA) Negative (Negative) mg/dL Urine Ketones Trace (Negative) mg/dL Urine Blood Large (3+) H (Negative) Urine Nitrite Negative (Negative) Ur Leukocyte Esterase Negative (Negative) Urine RBC 11-20 H (0-2) /HPF Urine WBC 0-5 (0-5) /HPF Ur Squamous Epith Cells 0-2 (0-2) /HPF Urine Bacteria None Seen (None Seen) Hyaline Casts 3-5 (0-2) /LPF S. pyogenes GrpA MADY Negative (Negative) Critical Care Time Critical Care Time Critical Care Time: Yes Total Critical Care Time: 35 Attestation: The patient was critically ill with a high probability of imminent or life- threatening deterioration. ?I spent greater than 30 minutes of discontinuous time evaluating the patient, delivering critical care at the bedside, discussing evaluating data with consultants. ?Critical care time does not include time spent performing separately billable procedures or teaching. ?Time spent performing critical care with 35 minutes. Discharge Plan Discharge Clinical Impression: Myasthenia gravis Patient Disposition: Admitted As Inpatient Print Language: Micronesian
--- NOTE | 2023-09-19 21:01 | MHC.EDTECH ---
PATIENT EKG TAKEN AND WAS READ BY PROVIDER ,URINE SAMPLE COLLECTED AND BLOOD DRAWN ALL SENT TO LAB .
[2023-09-19 21:02] LABS: MANUAL DIFF FLAG NO
[2023-09-19 21:04] LABS: Basophils Absolute Auto 0.1 X10*3/uL (0.0-0.2); Basophils Percent Auto 1.1 % (0-2); Eosinophils Absolute Auto 0.1 X10*3/uL (0.0-0.4); Eosinophils Percent Auto 1.3 % (0-4); Hematocrit 40.5 % (42.0-52.0); Hemoglobin 13.7 g/dl (14.0-18.0); Imm Gran Abs Auto 0.03 X10*3/uL (0.00-0.03); Imm Gran Pct Auto 0.4 % (0.0-0.4); Lymphocytes Absolute Auto 2.1 X10*3/uL (1.2-4.9); Lymphocytes Percent Auto 24.3 % (20-40); Mean Corpuscular HGB Conc 33.8 g/dl (31.0-36.0); Mean Corpuscular Hemoglobin 30.2 pg (27.0-33.0); Mean Corpuscular Volume 89.2 fL (80.0-98.0); Mean Platelet Volume 8.9 fL (9.4-12.4); Monocytes Absolute Auto 0.6 X10*3/uL (0.1-1.2); Monocytes Percent Auto 7.5 % (2-11); Neutrophils Absolute Auto 5.6 x10*3/uL (2.0-8.3); Neutrophils Percent Auto 65.4 % (45-73); Platelet Count 269 X10*3/uL (160-400); Red Blood Count 4.54 X10*6/uL (4.60-5.80); Red Cell Distribution Width 12.9 % (11.0-16.0); White Blood Count 8.6 X10*3/uL (4.8-10.8)
[2023-09-19 21:05] LABS: Appearance Urine Clear; Color Urine Yellow; Glucose Urine UA Negative (Negative); Leukocyte Esterase Urine Negative (Negative); Nitrite Urine Negative (Negative); PH 5.5 (5.0-9.0); Specific Gravity - Urine 1.025 (1.005-1.025); UMIC TRIGGER UACC YES; Urine Blood Large (3+) (Negative); Urine Ketones Trace mg/dL (Negative); Urine Protein 30 (1+) mg/dL (Neg-Trace)
[2023-09-19 21:10] LABS: Bacteria Urine None Seen (None Seen); Prothrombin Time 11.9 SEC (11.1-13.3); Squamous Epithelial Cell Urine 0-2 /HPF (0-2); WBC Urine 0-5 /HPF (0-5)
[2023-09-19 21:13] LABS: Partial Thromboplastin Time 34.1 SEC (26.0-36.8)
[2023-09-19 21:23] LABS: Alanine Aminotransferase 13 U/L (0-40); Albumin Level 4.3 g/dL (3.5-5.0); Alkaline Phosphatase 69 U/L (39-117); Anion Gap 11 (12-20); Aspartate Amino Transferase 16 U/L (5-37); Bilirubin Total 1.1 mg/dL (0.0-1.0); Blood Urea Nitrogen 14 mg/dL (9-16); C Reactive Protein 0.26 mg/dL (< or = 0.50); Calcium 9.2 mg/dL (8.4-10.2); Carbon Dioxide 27 mmol/L (22-29); Chloride 109 mmol/L (96-108); Creatinine Clr Calc Pharmacy 78.4; Estimated Glomerular Filt Rate > 60; Glucose Random 120 mg/dL (60-115); Potassium 3.4 mmol/L (3.3-5.1); Sodium 144 mmol/L (135-145)
[2023-09-19 21:43] LABS: Erythrocyte Sedimentation Rate 17 MM/HR (0-15)
[2023-09-20 04:26] VITALS: BP 142/87; PULSE 83; RESP 20; TEMP 36.9; O2SAT 97
[2023-09-20 05:50] VITALS: BP 125/73; PULSE 77; RESP 16; TEMP 36.3; O2SAT 97
[2023-09-20 06:08] LABS: IDNOW Serial# 6674DD1D; Strep A Nucleic Acid Negative (Negative)
[2023-09-20 08:00] VITALS: BP 114/63; PULSE 83; RESP 18; TEMP 36.6; O2SAT 96
[2023-09-20] MEDS: 0.9 % Sodium Chloride 1,000 ML 999 ML IV (09:02)
--- NOTE | 2023-09-20 09:11 | PC.NURSE ---
pt ambulates to the restroom w/ a strong steady gait independently. no use of assistive devices needed. 20gIV placed in the left forearm - IVF administered per provider order. plan of care ongoing. call miguel placed within reach.
--- NOTE | 2023-09-20 09:42 | PC.RT ---
NIF -[id number] VC 2.8L
--- NOTE | 2023-09-20 10:28 | PC.NURSE ---
pt speaking w/ ED provider as well as neurologist in regards to being admitted. pt aware of plan of care at this time.
--- NOTE | 2023-09-20 10:46 | P.CNNE_ITS ---
History of Present Illness Data of Consult Service Date: 09/20/23 Primary Care Provider: None Physician HPI Reason for consult: Myasthenia gravis 73 years old man with antibody positive generalized myasthenia gravis with symptoms of double vision, dysphagia, dysarthria, and weakness more pronounced in facial and neck muscles. He initially presented at [facility] in January of 2023 but apparently was not following any primary care physician or neurologist afterwards. He said that he was fine and did not have any problem and was not following any Dr.. He came back to hospital with similar symptoms. He was having difficulty holding his neck up and was having difficulty speaking and swallowing. There was no sign of any recent cold or flu-like illness. Review of Systems 2 Review of Systems: As per [facility] Social History Social History Household Members: None Housing: House Alcohol intake: never Patient Tobacco Use Status: Never used Tobacco Smoked in Last 30 Days: No Use of substances other than those prescribed or required for medical reasons: No Advance Directives: No Advance Directives Information Provided: Yes service: No Meds Allergies Allergy/AdvReac Type Severity Reaction Status Date / Time No Known Allergies Allergy Verified 09/19/23 20:15 Physical Exam 2 Vital Signs: Vital Signs: Last Vital Signs Temp 97.9 F 09/20/23 08:00 Pulse 83 09/20/23 08:00 Resp 18 09/20/23 08:00 BP 114/63 09/20/23 08:00 Pulse Ox 96 09/20/23 08:00 O2 Del Method Room Air 09/20/23 08:00 BMI result Body Mass Index 31.5 Neuro: Other: He is alert and awake with normal spontaneity of speech fluency comprehension and affect. Face is symmetrical though facial muscles are slightly weak. Speech is okay. He could count between 5-8 in 1 breath. Deep tendon reflexes were trace to absent with mild generalized weakness. Results Labs 09/19/23 20:57 09/19/23 20:57 Labs: Short CBC 09/19/23 Range/Units 20:57 WBC 8.6 (4.8-10.8) X10*3/uL Hgb 13.7 L (14.0-18.0) g/dl Hct 40.5 L (42.0-52.0) % Plt Count 269 (160-400) X10*3/uL BMP 09/19/23 20:57 Sodium 144 Potassium 3.4 Chloride 109 H Carbon Dioxide 27 BUN 14 Creatinine 0.90 Calcium 9.2 D Liver Function 09/19/23 Range/Units 20:57 Total Bilirubin 1.1 H (0.0-1.0) mg/dL AST 16 (5-37) U/L ALT 13 (0-40) U/L Alkaline Phosphatase 69 (39-117) U/L Albumin 4.3 (3.5-5.0) g/dL Urine 09/19/23 Range/Units 20:57 Urine Color Yellow Urine Appearance Clear Urine pH 5.5 (5.0-9.0) Ur Specific [place] 1.025 (1.005-1.025) Urine Protein 30 (1+) H (Neg-Trace) mg/dL Urine Glucose (UA) Negative (Negative) mg/dL Previously, his acetylcholne Receptor antibodies; binding, blocking, and modulating titers were high. Head CT did not reveal any significant pathology. Assessment and Plan (1) Myasthenia gravis with exacerbation: Status: Acute 73 years old man with antibody positive generalized myasthenia gravis in exacerbation. He has not been following any primary care physician or a neurologist. At this time, my recommendation is to treat him with IVIG 0.4 grams/kg per day for 5 days. I also recommend starting him on prednisone 20 mg twice a day with pyridostigmine 60 mg 3 times a day. Dose of prednisone would be adjusted in 3-4 weeks time. He was strongly advised to see a primary care physician and follow through with neurology. At this time, his respiratory status is precarious and I recommend admission to ICU and keeping close eye on his respiratory status. Procedures Date of Service Date of Service: 09/20/23
--- NOTE | 2023-09-20 11:09 | PC.NURSE ---
pt c/o 02/04 head/throat pain - requesting medication. admitting provider notified/aware. airway patent. no sob/wob noted. respirations even and unlabored.
[2023-09-20] MEDS: Immun Glob G(IgG)/Gly/IGA Ov50 300 ML IV (11:49)
--- NOTE | 2023-09-20 11:50 | PC.NURSE ---
IVIG infusion started at this time. airway remains patent. no sob/wob noted. respirations even and unlabored.
--- NOTE | 2023-09-20 12:36 | PHA.MEDREC ---
Pharmacy Consult ? Medication Reconciliation Pharmacy has completed the medication reconciliation. spoke with patient to confirm medications. He does not have any prescriptions, just OTC medications. He reports he last took them a few days ago.
--- NOTE | 2023-09-20 13:02 | PC.NURSE ---
pt spoke to ED provider/aware of plan of care in regards to being transferred.
--- NOTE | 2023-09-20 13:20 | PC.NURSE ---
report given to S at this time.
--- NOTE | 2023-09-20 14:00 | PC.NURSE ---
report given to MONET Willett in the ED at [place] at this time.
[2023-09-20 14:38] VITALS: BP 114/63; PULSE 83; RESP 18; TEMP 36.6; O2SAT 96
== END 2023-09-20 14:39 | disposition short-term general hospital (02) ==
PROVIDERS: Physician Assistant Medical; Emergency Provider Emergency Medicine
DX: G70.01 Myasthenia gravis with (acute) exacerbation (principal); J02.9 Acute pharyngitis, unspecified; R13.10 Dysphagia, unspecified; R53.1 Weakness; R20.0 Anesthesia of skin; R51.9 Headache, unspecified; M54.2 Cervicalgia; Z79.899 Other long term (current) drug therapy
CPT/HCPCS: 36415; 70450; 80053; 81001; 84484; 85025; 85610; 85652; 85730; 86140; 87651; 93005; 96361; 96374; 99285; J1569

== ENCOUNTER → 2023-09-19 20:20 | Outpatient (BNV) | payer SELFPAY | PROVIDERS: Emergency Provider Emergency Medicine; Visit Provider Internal Medicine Cardiovascular Disease | DX: R53.1 Weakness (principal) | CPT/HCPCS: 93010 ==

== ENCOUNTER → 2023-09-20 03:39 | Outpatient (BNV) | payer SELFPAY | PROVIDERS: Emergency Provider Emergency Medicine; Visit Provider Psychiatry & Neurology Neurology | DX: G70.01 Myasthenia gravis with (acute) exacerbation (principal) | CPT/HCPCS: 99284 ==

== ENCOUNTER 2024-05-22 15:52 | Emergency (ER) | payer MEDICARE, SELFPAY ==
--- NOTE | ~2024-05-22 | XR_ITS ---
CLINICAL HISTORY: weakness 2 view chest x-ray Comparison: CR/OH - CHEST 2 VIEWS - 05/21/18 19:55 EST Findings: No consolidation or effusion. Heart size is normal. No acute fracture. IMPRESSION: 1. No acute findings. This document has been electronically signed by: Edmundo Orlando MD on 05/22/2024 17:36:50
--- NOTE | ~2024-05-22 | FL_ITS ---
EXAMINATION: Modified Barium Swallow CLINICAL INFORMATION: Dysphagia. History of myasthenia gravis. COMPARISON: None TECHNIQUE: Modified barium swallow was performed under lateral fluoroscopy with patient in standing position. Barium mixed with solids and liquids of different consistencies was administered by the speech pathologist. Examination was recorded in the fluoroscopy suite. FINDINGS: There is a delayed swallowing mechanism. No laryngeal penetration or aspiration was observed during this examination. FLUOROSCOPY TIME: 1 minute 18 seconds Number of Spot Images: N/A DOSE AREA PRODUCT: 670.2 uGy-m2 (microgray-meter squared) FL/FL Modified Barium Swallow IMPRESSION: 1. Delayed swallowing mechanism. 2. No laryngeal penetration or aspiration was observed. Refer to the speech therapy report for further clarification This procedure was performed by Darrell Ford PA-C, and supervised by Dr. Goldsmith Electronically signed by: Piter Goldsmith MD 05/25/2024 05:03 PM [facility] [place]
--- NOTE | 2024-05-22 16:13 | ED_ITS ---
HPI - General Adult General Chief complaint: General Medical Stated complaint: weakness Time Seen by Provider: 05/23/24 02:09 Source: patient Mode of arrival: ambulatory Limitations: no limitations History of Present Illness ED Provider: Dr. Zuly Orellana HPI narrative: Patient comes in to emergency room via ambulance from home. According to the patient, he was recently discharged from [facility] in [place] for myasthenia gravis. Patient states that since he was discharged, patient had a fall 2-3 days ago, reports that he feels that his muscles are twitching, especially behind his eye, throughout his body, having worsening dysuria, overall pain. Patient was started on pyridostigmine , prednisone and azathioprine. Patient denies any chest pain or shortness of breath, denies hitting his head or losing consciousness. Denies any musculoskeletal pain from the fall. Patient also reports having URI symptoms for the last week or so including cough, runny nose. Related Data Home Medications ?Medication ?Instructions ?Recorded ?Confirmed esomeprazole magnesium 20 mg 20 mg PO DAILY 09/20/23 09/20/23 capsule,delayed release (Nexium 24HR) multivitamin 1 tab PO DAILY 09/20/23 09/20/23 Allergies Allergy/AdvReac Type Severity Reaction Status Date / Time No Known Allergies Allergy Verified 05/22/24 16:17 Review of Systems 2 Review of Systems: Constitutional : No Weight loss, No Fever, No Chills, No Night Sweats, No Fatigue, No Malaise ENT/Mouth : Complaining of eye twitching, No Hearing loss, No Ear Pain, No Nasal Congestion, No Sinus Pain, No Hoarseness, complaining of foreign body sensation without any sore throat, No sore throat, No Rhinorrhea, No Swallowing Difficulty Eyes: No Eye Pain, No Swelling, No Redness, No Foreign Body, No Discharge, No Vision Changes Cardiovascular : No Chest Pain, No SOB, No Dyspnea on Exertion, No Orthopnea, No Edema, No Palpitations Respiratory : complaining of cough and runny nose, No Sputum, No Wheezing, No Smoke Exposure, No Dyspnea Gastrointestinal : No Nausea, No Vomiting, No Diarrhea, No Constipation, No abdominal Pain, No Hematochezia, No Melena Genitourinary : no irregular bleeding, No Dysuria, No Urinary Frequency, No Hematuria, No Urinary Incontinence, No Urgency, No Flank Pain, No Urinary Flow Changes, No Hesitancy Musculoskeletal : Complaining of chronic muscle weakness Skin : No Skin Lesions, No rash Neuro : No Weakness, No Numbness, No Paresthesias, No Loss of Consciousness, No Dizziness, No Headache Psych : No Anxiety/Panic, No Depression, No SI/HI/AH/VH, No Social Issues, Heme/Lymph: No Bruising, No Bleeding,No Lymphadenopathy Endocrine : No Polyuria, No Polydipsia, No Temperature Intolerance [facility] Past Medical History Medical History (Updated 05/23/24 @ 08:05 by Zuly Orellana MD) Myasthenia gravis with exacerbation Social History Social History Household Members: None Housing: House Alcohol intake: never Patient Tobacco Use Status: Never used Tobacco Smoked in Last 30 Days: No Use of substances other than those prescribed or required for medical reasons: No Advance Directives: No Advance Directives Information Provided: Yes service: No Physical Exam ED Vital Signs: Vital Signs - 24 hr 05/22/24 16:14 05/23/24 00:06 05/23/24 03:19 Temperature 97.7 F 98.0 F 98.0 F Pulse Rate 108 H 95 78 Respiratory Rate 20 18 16 Blood Pressure 140/78 H 120/71 122/74 Pulse Oximetry 98 97 95 Oxygen Delivery Method Room Air Room Air Room Air BMI result Body Mass Index 27.1 Const Other: Appearance: Alert. Oriented X3. No acute distress. Eyes: Pupils equal, round and reactive to light. ENT: Pharynx normal. Neck: Normal inspection. Neck supple. No lymph nodes noted. No crepitus CVS: Normal heart rate and rhythm. Pulses normal. Normal S1 and S2 Respiratory: No respiratory distress. Breath sounds normal. No Wheezing. No rales Abdomen: Soft and nontender. No rigidity. No distention. Skin: Skin warm and dry. Normal skin color. Normal skin turgor. Extremities: No lower extremity edema. No Lacerations. No Rash Neuro: Oriented X 3. No motor deficit. No sensory deficit. Moving all extremities. No slurred speech. CN 2 through 12 grossly intact. Patient is ambulatory, able to walk by himself but slowly Psych: calm, cooperative, normal affect Course Course Course Narrative: This is a Rapid Medical Examination (RME) performed by Paige Sinclair PA-C in triage. Full HPI, ROS, assessment and treatment plan per primary provider in the Main ED. 73 yo male w/ hx of myasthenia gravis here for evaluation of worsening weakness/ muscle aches x3 months. pain worse in bilateral LEs. recently seen at [facility] [place] [facility] and transferred to [facility]. Plan: labs, cxr, ekg. records requested from [facility] @ 1620 Medical Decision Making Medical Decision Making [facility] Narrative: My interpretation of labs: No significant abnormality patient's hematology and chemistry, urinalysis negative. Serology negative for flu, RSV and COVID. Chest x-ray does not show any acute abnormalities. I discussed the patient with Dr. Mitchell, at this time, no need for admission. We will increase patient's prednisone. Currently taking 10 mg p.o. daily, patient will start 20 mg p.o. starting today It is imperative that patient has a good follow-up with Neurology outpatient. In the meantime, patient weak. Physical therapy and case management consult pending. Physical therapy evaluation will likely be done in the morning. However, seems that patient had some instructions to follow-up with ophthalmology in seems that he has PT coming into his house? However, patient is not sure if in fact he does have services. I discussed the patient with field case manager Selena, who will help us investigate the patient's current services. PT case management has been placed. I discussed the and also with the patient's nurse, prednisone will be increased to 20 mg a day. 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 Lab Attestation statement: I reviewed the patient's lab results. 05/22/24 16:27 05/22/24 16:27 Labs: Lab Results 05/22/24 05/23/24 Range/Units 16:27 06:17 WBC 6.5 (4.8-10.8) X10*3/uL RBC 3.67 L (4.60-5.80) X10*6/uL Hgb 11.5 L (14.0-18.0) g/dl Hct 35.2 L (42.0-52.0) % MCV 95.9 (80.0-98.0) fL MCH 31.3 (27.0-33.0) pg MCHC 32.7 (31.0-36.0) g/dl RDW 18.1 H (11.0-16.0) % Plt Count 286 (160-400) X10*3/uL MPV 8.6 L (9.4-12.4) fL Immature Gran % (Auto) 1.2 H (0.0-0.4) % Neut % (Auto) 66.6 (45-73) % Lymph % (Auto) 21.0 (20-40) % Hudson % (Auto) 9.4 (2-11) % Eos % (Auto) 0.9 (0-4) % Baso % (Auto) 0.9 (0-2) % Lymph # (Auto) 1.4 (1.2-4.9) X10*3/uL Hudson # (Auto) 0.6 (0.1-1.2) X10*3/uL Eos # (Auto) 0.1 (0.0-0.4) X10*3/uL Baso # (Auto) 0.1 (0.0-0.2) X10*3/uL Abs Immat Gran (auto) 0.08 H (0.00-0.03) X10*3/uL Absolute Neuts (auto) 4.3 (2.0-8.3) x10*3/uL Absolute Nucleated RBC 0.000 (0.0-0.012) X10*3/uL Nucleated RBC % (auto) 0.0 (0.0-0.2) /100WBC ESR 80 H (0-15) MM/HR Sodium 141 (135-145) mmol/L Potassium 4.0 (3.3-5.1) mmol/L Chloride 109 H (96-108) mmol/L Carbon Dioxide 25 (22-29) mmol/L Anion Gap 11 L (12-20) BUN 11 (9-16) mg/dL Creatinine 0.71 (0.5-1.4) mg/dL Estim Creat Clear Calc 92.3 Estimated GFR > 60 Random Glucose 114 (60-115) mg/dL Calcium 8.5 D (8.4-10.2) mg/dL Magnesium 2.0 (1.6-2.6) mg/dL Total Bilirubin 0.5 (0.0-1.0) mg/dL AST 18 (5-37) U/L ALT 25 (0-40) U/L Alkaline Phosphatase 85 (39-117) U/L Total Creatine Kinase 33 L (38-174) U/L C-Reactive Protein 0.70 H (< or = 0.50) mg/dL Total Protein 7.7 (6.5-8.0) g/dL Albumin 3.8 (3.5-5.0) g/dL Urine Color Dark Yellow Urine Appearance Cloudy Urine pH 5.5 (5.0-9.0) Ur Specific [place] >= 1.030 H (1.005-1.025) Urine Protein 30 (1+) H (Neg-Trace) mg/dL Urine Glucose (UA) Negative (Negative) mg/dL Urine Ketones Trace (Negative) mg/dL Urine Blood Large (3+) H (Negative) Urine Nitrite Negative (Negative) Ur Leukocyte Esterase Trace H (Negative) Urine RBC >20 H (0-2) /HPF Urine WBC 0-5 (0-5) /HPF Ur Squamous Epith Cells 0-2 (0-2) /HPF Calcium Oxalate Crystal Present Urine Bacteria None Seen (None Seen) Hyaline Casts 0-2 (0-2) /LPF Influenza Type A (PCR) NEGATIVE (Negative) Influenza Type B (PCR) NEGATIVE (Negative) RSV RNA Qual (PCR) NEGATIVE (Negative) SARS-CoV-2 RNA (RT-PCR) NEGATIVE (Negative) Independent Interpretation I performed an independent interpretation of an: Plain X-Ray Radiology Impression Discussion of test interpretation with radiology: I have reviewed the radiologist's reading. Radiologist Impression: No consolidation or effusion. Heart size is normal. No acute fracture. IMPRESSION: 1. No acute findings. Critical Care Time Critical Care Time Critical Care Time: Yes Total Critical Care Time: 60 Attestation: I have personally provided critical care time. Time includes review of lab data, radiology results, discussion with consultants, and monitoring for potential decompensation. Intervention performed as documented. Discharge Plan Discharge Clinical Impression: Myasthenia gravis, Physical deconditioning Patient Disposition: Still a Patient Prescriptions: No Action multivitamin Tablet 1 tab PO DAILY esomeprazole magnesium [Nexium 24HR] 20 mg Capsule,Delayed Release(Dr/Ec) 20 mg PO DAILY Print Language: Zambian
[2024-05-22 16:14] VITALS: BP 140/78; PULSE 108; RESP 20; TEMP 36.5; O2SAT 98; BMI 27.1
--- NOTE | 2024-05-22 16:16 | ECG_ITS ---
Test Reason : weaknesss Blood Pressure : */* mmHG Vent. Rate : 109 BPM Atrial Rate : 109 BPM P-R Int : 116 ms QRS Dur : 66 ms QT Int : 310 ms P-R-T Axes : 22 5 0 degrees QTcB Int : 417 ms Sinus tachycardia Otherwise normal ECG When compared with ECG of 19-Sep-2023 20:20, Premature ventricular complexes are no longer Present Premature atrial complexes are no longer Present Referred By: Carmelita Sinclair Electronically Signed By: JIMMY RICK MD
[2024-05-22 16:33] LABS: MANUAL DIFF FLAG NO
[2024-05-22 16:42] LABS: Basophils Absolute Auto 0.1 X10*3/uL (0.0-0.2); Basophils Percent Auto 0.9 % (0-2); Eosinophils Absolute Auto 0.1 X10*3/uL (0.0-0.4); Eosinophils Percent Auto 0.9 % (0-4); Hematocrit 35.2 % (42.0-52.0); Hemoglobin 11.5 g/dl (14.0-18.0); Imm Gran Abs Auto 0.08 X10*3/uL (0.00-0.03); Imm Gran Pct Auto 1.2 % (0.0-0.4); Lymphocytes Absolute Auto 1.4 X10*3/uL (1.2-4.9); Mean Corpuscular HGB Conc 32.7 g/dl (31.0-36.0); Mean Corpuscular Hemoglobin 31.3 pg (27.0-33.0); Mean Corpuscular Volume 95.9 fL (80.0-98.0); Mean Platelet Volume 8.6 fL (9.4-12.4); Monocytes Absolute Auto 0.6 X10*3/uL (0.1-1.2); Monocytes Percent Auto 9.4 % (2-11); Neutrophils Absolute Auto 4.3 x10*3/uL (2.0-8.3); Neutrophils Percent Auto 66.6 % (45-73); Platelet Count 286 X10*3/uL (160-400); Red Blood Count 3.67 X10*6/uL (4.60-5.80); Red Cell Distribution Width 18.1 % (11.0-16.0); White Blood Count 6.5 X10*3/uL (4.8-10.8)
[2024-05-22 16:51] LABS: Alanine Aminotransferase 25 U/L (0-40); Albumin Level 3.8 g/dL (3.5-5.0); Alkaline Phosphatase 85 U/L (39-117); Anion Gap 11 (12-20); Aspartate Amino Transferase 18 U/L (5-37); Bilirubin Total 0.5 mg/dL (0.0-1.0); Blood Urea Nitrogen 11 mg/dL (9-16); Calcium 8.5 mg/dL (8.4-10.2); Carbon Dioxide 25 mmol/L (22-29); Chloride 109 mmol/L (96-108); Creatinine Clr Calc Pharmacy 92.3; Estimated Glomerular Filt Rate > 60; Glucose Random 114 mg/dL (60-115); Sodium 141 mmol/L (135-145); Total Protein 7.7 g/dL (6.5-8.0)
[2024-05-22 17:12] LABS: Influenza A PCR NEGATIVE (Negative); Influenza B PCR NEGATIVE (Negative); Resp Syncy Virus RNA Qual PCR NEGATIVE (Negative); SARS COV2 PCR INHOUSE NEGATIVE (Negative)
[2024-05-22 17:26] LABS: Erythrocyte Sedimentation Rate 80 MM/HR (0-15)
--- NOTE | 2024-05-23 00:05 | PC.NURSE ---
no answer for retriage @ 0756 recalled at 0005 pt answered pt states did not hear
[2024-05-23 00:06] VITALS: BP 120/71; PULSE 95; RESP 18; TEMP 36.7; O2SAT 97
[2024-05-23 03:19] VITALS: BP 122/74; PULSE 78; RESP 16; TEMP 36.7; O2SAT 95
--- NOTE | 2024-05-23 03:36 | PC.NURSE ---
Patient ambulated 50 ft independently with a slow, but steady gait. Patient reported worsening pain in lower legs with ambulation. Dr Orellana notified.
[2024-05-23 06:24] LABS: Appearance Urine Cloudy; Color Urine Dark Yellow; Glucose Urine UA Negative (Negative); Leukocyte Esterase Urine Trace (Negative); Nitrite Urine Negative (Negative); PH 5.5 (5.0-9.0); Specific Gravity - Urine >= 1.030 (1.005-1.025); UMIC TRIGGER UACC YES; Urine Blood Large (3+) (Negative); Urine Ketones Trace mg/dL (Negative); Urine Protein 30 (1+) mg/dL (Neg-Trace)
[2024-05-23 07:03] LABS: Bacteria Urine None Seen (None Seen); Calcium Oxalate Crystals Urine Present; Hyaline Casts Urine 0-2 /LPF (0-2); RBC Urine >20 /HPF (0-2); Squamous Epithelial Cell Urine 0-2 /HPF (0-2); WBC Urine 0-5 /HPF (0-5)
[2024-05-23 08:09] VITALS: BP 125/80; PULSE 97; RESP 16; TEMP 37.2; O2SAT 97
--- NOTE | 2024-05-23 08:29 | PC.NURSE ---
med rec completed, per Dr. Orellana increase prednisone to 20,g per neuro
--- NOTE | 2024-05-23 09:30 | PHA.MEDREC ---
Pharmacy Consult ? Medication Reconciliation Pharmacy has REVIEWED the medication reconciliation. obtained list from [facility]
[2024-05-23] MEDS: predniSONE 20 MG TABLET PO (09:44)
[2024-05-23] MEDS: Calcium Carbonate 750 MG TAB.CHEW 1500 MG PO (09:44)
[2024-05-23] MEDS: Multivitamin TABLET 1 TAB PO (09:45)
[2024-05-23] MEDS: Famotidine 20 MG TABLET PO ×2 (09:45→17:42)
[2024-05-23] MEDS: Pantoprazole Sodium 20 MG TABLET.DR 40 MG PO ×2 (09:45→17:42)
[2024-05-23] MEDS: pyRIDostigmine bromide 60 MG TABLET PO ×4 (10:14→22:29)
[2024-05-23] MEDS: azaTHIOprine 50 MG TABLET PO ×2 (10:14→22:29)
--- NOTE | 2024-05-23 12:24 | MHC.CM.ED ---
Received case management consult from Dr Orellana overnight. Patient came to the ER with weakness. Patient was recently d/c'd from [facility] and has a history of myasthenia gravis. Physical therapy eval completed but will not be available until Wednesday 05/24. Copy of [facility] discharge summary and HCP requested. Not received yet. Attempted to meet with patient in regards to discharge planning. Patient currently sleeping. No family present. Will attempt to meet again. Continue to monitor for d/c needs.
[2024-05-23 14:41] VITALS: BP 119/64; PULSE 107; RESP 18; TEMP 36.6; O2SAT 98
--- NOTE | 2024-05-23 17:44 | PC.NURSE ---
Patient with no swallowing difficulties at lunch or when taking po meds whole. Patient reports after taking po meds for gerd he has less of an acid taste in his mouth
[2024-05-24 00:33] VITALS: BP 102/57; PULSE 95; RESP 18; TEMP 37; O2SAT 97
[2024-05-24 07:15] LABS: Glucose, Whole Blood 97 mg/dL (60-115)
[2024-05-24] MEDS: Famotidine 20 MG TABLET PO ×2 (09:09→17:42)
[2024-05-24] MEDS: pyRIDostigmine bromide 60 MG TABLET PO ×4 (09:09→21:58)
[2024-05-24] MEDS: Pantoprazole Sodium 20 MG TABLET.DR 40 MG PO ×2 (09:09→17:28)
[2024-05-24] MEDS: predniSONE 20 MG TABLET PO (09:09)
[2024-05-24] MEDS: Multivitamin TABLET 1 TAB PO (09:09)
[2024-05-24] MEDS: azaTHIOprine 50 MG TABLET PO ×2 (10:27→21:58)
[2024-05-24] MEDS: Acetaminophen 325 MG TABLET 975 MG PO (10:28)
--- NOTE | 2024-05-24 11:21 | MHC.SL.SWA ---
Speech Pathologist Impression: Risk of Aspiration Pharyngeal Dysphagia Esophageal Dysphagia Risk of Aspiration Due to: Poor PO Intake Weak Cough Weak Voice Dysphasia Diet Status: Recommend regular diet with thin liquids, pills whole with thin liquid wash. [facility] MBSS d/t diagnosis of Myasthenia Gravis and persisting variability of PO tolerance. Liquid Consistency and Strategies for Safe Swallow: Liquid Intake Recommendation: Thin Liquid Intake Strategies: Small Sips Solid Food Consistency: Dietary Recommendations: Regular Additional Modifications to Solid Foods: Pt to avoid foods he feels would be difficult to tolerate. Oral Medication Intake: Whole with Liquid Please contact the pharmacy regarding appropriate crushable or liquid drug formulations that are available whenever modified delivery is recommended. Compensatory Strategies and Precautions to be Taken for Safe Swallow: Sitting Upright (90 deg) Small Bites and Sips Alternate Liquids/Solids Rate of Ingestion Change Supervision While Eating and Drinking for Safe Swallow: None Needed Foods to Avoid: Hard, difficult to chew solids, mixed consistencies. Swallowing Recommended Treatments: Compens. Strategy Educat. Recommendation for Speech: Inpatient Speech Therapy Modified Barium Swallow Study - Inpatient Comment: Frequency/Duration: M-F Daily Date Range for Service Req: Timeline to reassess: Supervisor [employer] Furnace Clinican/Clinical Fellow: No Supervisory Statement: I have reviewed and agree with the student/clinical fellow's documentation: N/A Speech Language Pathologist: Malu Caputo M.S., CCC-BAND TEACHER
[2024-05-24 11:42] VITALS: BP 102/57; PULSE 95; O2SAT 97
--- NOTE | 2024-05-24 13:01 | MHC.CM.ED ---
Patient remains in ER. Physical therapy eval completed. Home with services is recommended. Medical Records obtained from [facility]. Patient presented to [facility] with 1-2 weeks of difficulty swallowing. Patient ended up being intubated for secretion control after a CT and was transferred to [facility]. Patient was at [facility] from 04/17/24-05/19/24. Patient was discharged home with [facility]. T/W is unable to determine which agency. T/W attempted to contact [facility] office for more info. Left voicemail requesting return telephone call. Continue to monitor for d/c needs.
[2024-05-24 15:34] VITALS: BP 102/62; PULSE 101; RESP 16; TEMP 36.6; O2SAT 97
--- NOTE | 2024-05-24 15:54 | MHC.SL.IMP ---
Date of Plan of Treatment: 05/24/24 Onset of Symptoms/Illness: 05/23/24 Date Treatment Started: 05/24/24 Admitting Diagnosis: Myasthenia gravis, Physical deconditioning Primary Speech & Language Diagnosis: R13.10 Dysphagia Secondary Speech & Language Diagnosis: R49.0 Dysphonia Reason for Today's Visit: 61312 Modified Barium Swallow Study Pre-evaluation Dietary Consistencies: Regular Pre-evaluation Liquid Consistency: Thin Pre-evaluation Medication Administration: Whole with Liquid Medical History: Modified Barium Swallow Study Fluoroscopic Evaluation of Swallowing Function CPT Code 79312 Evaluation Year: 2024 Reason for Study: Difficulty swallowing Referring Physician: April Levine NP Evaluating Clinician: Mehreen Alas MA, CCC-C CONSULTANT Study Number: 1 Patient Name: Jeanmarie Mckeon Status: Inpatient, Wheelchair Age: 73 Gender: Male Medical History Comorbidities: Myasthenia Gravis Current (pre-evaluation) Intake/Diet: Route: PO Diet Grade: Regular Liquid Consistencies: Thin Pre-Study Functional Oral Intake Scale (FOIS): 7- Total oral intake with no restrictions Pain: None reported at time of study Subjective: Patient reports he was recently discharged from [facility] in [place]. Patient presents now to the hospital from home after having a fall 2-3 days ago, c/o muscles twitching throughout his body, dysuria, coughing, and overall pain. Per previous C CONSULTANT: ?Pt endorsed onset of inability to swallow or speak when seen at [facility], had NG tube feeds for 10 days at [facility]. Ability to swallow returned, pt has been PO by mouth since d/c from [facility]. Pt has hx of GERD, on PPI. Pt reported he had a swallow xray while hospitalized, describing a scope procedure.? Patient was referred for MBSS to further assess pharyngeal swallow. Patient communicated in Citizen [place] and Polish, seen today by Citizen [place] speaking C CONSULTANT. Food and Liquid Trials: Oral Impairment: Lip Closure: Did not test Oral Impairment: Tongue Control During Bolus Hold: 1=Escape to lateral buccal cavity/floor of mouth (FOM) Oral Impairment: Bolus Preparation/Mastication: 0=Timely and efficient chewing and mashing Oral Impairment: Bolus Transport/Lingual Motion: 3=Repetitive/disorganized tongue motion Oral Impairment: Oral Residue: 2=Residue collection on oral structures Oral Impairment:Initiation of Pharyngeal Swallow: 1=Bolus head in valleculae Pharyngeal Impairment: Soft Palate Elevation: 0=No bolus between soft palate (SP)/pharyngeal wall (PW) Pharyngeal Impairment: Laryngeal Elevation: 0=Complete superior movement of thyroid cartilage (see description) Pharyngeal Impairment: Anterior Hyoid Excursion: 0=Complete anterior movement Pharyngeal Impairment: Epiglottic Movement: 0=Complete inversion Pharyngeal Impairment: Laryngeal Vestibular Closure:: 0=Complete: no air/contrast in laryngeal vestibule Pharyngeal Impairment: Pharyngeal Stripping Wave: 0=Present: complete Pharyngeal Impairment: Pharyngeal Contraction: Did not test Pharyngeal Impairment: Pharyngoesophageal Segment Openin=Partial distention/partial duration: partial obstruction of flow Pharyngeal Impairment: Tongue Base (TB) Retraction: 1=Trace column of contrast/air between TB and posterior PW Pharyngeal Impairment: Pharyngeal Residue: 1=Trace residue within or on pharyngeal structures Pharyngeal Impairment: Esophageal Clearance Upright Position: Did not test Impressions and Recommendations OBJECTIVE: Time-out: performed at 15:00 Evaluation Start: 14:30; Stop: 14:40 Patient Positioning: Seated 70-90 degrees Viewing Planes: LATERAL ONLY Contrast: MBSImP? Standardized Protocol using commercially prepared, standardized Barium viscosities, including: Varibar? THIN LIQUID (40% w/v, <15 cps) , Varibar? PUDDING (40% w/v, <8683-7849 cps) , 1/2 Shortbread Cookie (1 x1 x.25 ) [facility] [id number] [facility] Results: Lip closure for intraoral bolus containment could not be assessed due to logistical reasons not related to physiologic impairment. Tongue control during bolus hold allowed bolus escape to the lateral buccal cavity/floor of mouth. Bolus preparation and mastication resulted in timely and efficient chewing and mashing. Bolus transport/lingual motion was with repetitive/disorganized motion of the tongue. Oral residue was a collection on oral structures. Initiation of the pharyngeal swallow occurred when the bolus head was in the valleculae. Soft palate elevation resulted in no bolus between the soft palate and the pharyngeal wall. Laryngeal elevation demonstrated complete superior movement of the thyroid cartilage with complete approximation of the arytenoids to the epiglottic petiole. Anterior hyoid excursion demonstrated complete anterior movement. Epiglottic movement resulted in complete inversion. Laryngeal vestibular closure was complete, as indicated by no air or contrast within the laryngeal vestibule at the height of the swallow. Pharyngeal stripping wave was present and complete. Pharyngeal contraction could not be determined due to logistical reasons not related to physiologic impairment. Pharyngoesophageal segment opening demonstrated partial distension/partial duration, with partial obstruction of bolus flow. Tongue base retraction allowed a trace column of contrast or air between the retracted tongue base and the posterior pharyngeal wall. Pharyngeal residue was a trace within or on pharyngeal structures. Esophageal clearance in the upright position could not be assessed due to logistical reasons not related to physiologic impairment. Oral Impairment Score: 7 (absence of score, component 1) Pharyngeal Impairment Score: 1 (absence of score, component 13) Esophageal Impairment Score: --- (absence of score, component 17) Laryngeal Penetration and Aspiration: Neither penetration nor aspiration was observed in today's study with Cookie, Pudding-thick, Thin. ASSESSMENT: Clinician Assessment: This exam was performed by the radiologist and the speech pathologist. Patient was seated for lateral view only. He was able to feed himself without difficulty and trialed thin (via individual cup sips), puree, and regular solid consistencies. There was mild spilling to the floor of mouth, repetitive posterior lingual movements. Mastication was timely and efficient. Mild lingual residue cleared with self-initiated dry swallows. Pharyngeal swallow trigger initiated as the bolus head reached the level of the valleculae. No evidence of nasopharyngeal reflux. Complete laryngeal elevation with complete epiglottic inversion and complete laryngeal vestibular closure. There was trace pooling in the valleculae and pyriforms. Partial distention/partial duration through the pharyngoesophgeal segment opening (PES). No evidence of penetration or aspiration during this exam. Liquid Intake Recommendation: Thin Liquid Intake Strategies: Small Sips, Double Swallow Dietary Recommendations: Regular Medication Administration: Whole with Liquid Please contact the pharmacy regarding appropriate crushable or liquid drug formulations that are available whenever modified delivery is recommended. Compensatory Strategies Recommended: Sitting Upright (90 deg), Double Swallow, Small Bites and Sips, Alternate Liquids/Solids, Rate of Ingestion Change Supervision during eating and or drinking: None Needed Recommended Treatments: Compens. Strategy Educat. Recommendation for Speech Therapy: Inpatient Speech Therapy Text Comment: Intake Recommendations: Route: PO Diet Grade: Regular Liquid Consistencies: Thin Post-Study Functional Oral Intake Scale (FOIS): 7- Total oral intake with no restrictions No evidence of penetration or aspiration. Trace to mild residue in the oral and pharyngeal cavities cleared with secondary swallows. Noted partial distention/partial duration through the PES. Therapy Recommendations: Recommend continue on REGULAR solids and THIN liquids, pills WHOLE with LIQUID. Patient is able to feed independently and is recommended strategies to promote clearance: take small bites, chew food well, alternate with sips of liquid, dry swallow between bites/sips. C CONSULTANT to f/u 1-2x to provide education RE: MBSS results & recommendations. Prognosis for Improvement: The prognosis for the patient to meet nutritional needs by mouth is good based on degree of impairment, stimulability for treatment. Desktop Publishing Operator Goals: ? The patient will tolerate the least restrictive diet with a safe/efficient swallow to maintain adequate nutrition and hydration. ? The patient and/or family will participate in further education for swallowing goals. Short Term Goals: ? Guidelines - The patient will comply with/recall the following guidelines/strategies 100% of the time with no cuing: Bolus Volume Change, Rate of Ingestion Change, Additional Swallow(s) per Bolus. ? Education - The patient will verbalize/demonstrate understanding of the results of this evaluation, the above recommendations, and the swallowing guidelines. Clinician - Supplemental, Miscellaneous Communication: It is important to note MBSS objective studies are snapshots in time and Patient function might vary with factors such as time of day or concomitant medical conditions. For this reason, the final treatment plan for this patient should rest with their medical care team. Additional recommendations should be considered with the totality of the Patient in mind. Thank for the opportunity to participate in the care of this patient. If you have any questions about the content of this report, please contact the [facility] at [facility]. Education: Education regarding findings from today's study and plans for therapy were provided to Patient only through Verbal Instruction. Understanding was expressed by the Patient only. Fire Chief'S Aide Clinician/Clinical Fellow: No Supervisory Statement: N/A Speech Language Pathologist: Mehreen Alas M.A., [facility]-C CONSULTANT
--- NOTE | 2024-05-25 03:40 | PC.NURSE ---
Patient resting in bed comfortable at this time. No distress observed or verbalized by patient.
[2024-05-25 05:32] VITALS: BP 120/71; PULSE 95; RESP 16; TEMP 36.6; O2SAT 97
[2024-05-25 08:37] VITALS: BP 113/66; PULSE 124; RESP 18; TEMP 37.1; O2SAT 96
[2024-05-25] MEDS: azaTHIOprine 50 MG TABLET PO (08:39)
[2024-05-25] MEDS: pyRIDostigmine bromide 60 MG TABLET PO (08:39)
[2024-05-25] MEDS: Multivitamin TABLET 1 TAB PO (08:40)
[2024-05-25] MEDS: predniSONE 20 MG TABLET PO (08:40)
[2024-05-25] MEDS: Famotidine 20 MG TABLET PO (08:40)
[2024-05-25] MEDS: Pantoprazole Sodium 20 MG TABLET.DR 40 MG PO (08:41)
--- NOTE | 2024-05-25 08:50 | PC.NURSE ---
pt noted to be tachycardic when tech was obtaining vitals. other vss and up to date/wnl. pt denies any chest pain/palpitations/sob/dizziness/lightheadedness. covering provider notified/aware. will reassess vitals in approx. 30 min. plan of care ongoing.
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
--- NOTE | 2024-05-25 12:05 | PC.NURSE ---
pt waiting for his medications that were stored in pharmacy before discharging, pt eating lunch while waiting and will discharge with information for local shelters
[2024-05-25 12:55] VITALS: BP 126/68; PULSE 113; RESP 18; TEMP 37; O2SAT 98
== END 2024-05-25 12:57 | disposition home or self-care (01) ==
PROVIDERS: Physician Assistant Medical; Emergency Provider Emergency Medicine
DX: G70.00 Myasthenia gravis without (acute) exacerbation (principal); M79.10 Myalgia, unspecified site; R53.1 Weakness; R13.10 Dysphagia, unspecified; R49.0 Dysphonia; R00.0 Tachycardia, unspecified; R26.2 Difficulty in walking, not elsewhere classified; Z79.899 Other long term (current) drug therapy; Z03.818 Encounter for observation for suspected exposure to other biological agents ruled out
CPT/HCPCS: 0241U; 51701; 71046; 74230; 80053; 81001; 82550; 82947; 83735; 85025; 85652; 86140; 93005; 97161; 99285

== ENCOUNTER → 2024-05-22 16:16 | Outpatient (BNV) | payer MEDICARE, SELFPAY | PROVIDERS: Emergency Provider Emergency Medicine; Visit Provider Internal Medicine Cardiovascular Disease | DX: I49.3 Ventricular premature depolarization (principal); I49.1 Atrial premature depolarization; R00.0 Tachycardia, unspecified | CPT/HCPCS: 93010 ==

== ENCOUNTER → 2024-05-22 16:16 | Outpatient (BNV) | payer MEDICARE, SELFPAY | PROVIDERS: Visit Provider Radiology Diagnostic Radiology | DX: R53.1 Weakness (principal) | CPT/HCPCS: 71046 ==

== ENCOUNTER → 2024-05-24 13:14 | Outpatient (BNV) | payer MEDICARE, SELFPAY | PROVIDERS: Emergency Provider Emergency Medicine; Visit Provider Physician Assistant Surgical | DX: R13.10 Dysphagia, unspecified (principal) | CPT/HCPCS: 74230 ==

== ENCOUNTER 2025-01-06 17:21 | Emergency (ER) | payer SELFPAY ==
--- NOTE | ~2025-01-06 | XR_ITS ---
CLINICAL HISTORY: rt ankle pain 3 views right ankle Comparison: None Findings: No fractures or dislocations No joint effusion No significant arthritic change No radiopaque foreign body Impression: Soft tissue swelling with no acute skeletal abnormality. This document has been electronically signed by: Franklin Barahona MD on 01/06/2025 20:55:32
--- NOTE | ~2025-01-06 | XR_ITS ---
CLINICAL HISTORY: Rt knee pain 2. views right knee Comparison: None Findings: No fractures or dislocation No joint effusion No soft tissue calcifications. No radiopaque foreign body Impression: Mild degenerative narrowing of the medial femorotibial joint space. No acute skeletal abnormality. This document has been electronically signed by: Franklin Barahona MD on 01/06/2025 20:56:37
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
--- NOTE | ~2025-01-06 | US_ITS ---
CLINICAL HISTORY: RLE swelling Venous duplex Doppler right leg with waveform analysis: Comparison: None. Findings: The deep veins of the right leg were evaluated with compression, augmentation and phasicity which is normal. Blood flow in the deep veins of the right leg is also documented with color Doppler. Impression: Negative for deep venous thrombosis. This document has been electronically signed by: Franklin Barahona MD on 01/06/2025 19:21:12
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
[2025-01-06 17:35] VITALS: BP 184/100; PULSE 110; O2SAT 96
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
[2025-01-06 17:51] VITALS: PULSE 112; RESP 18; TEMP 36.7; O2SAT 97; BMI 32.3
[2025-01-06 18:00] VITALS: BP 154/86; PULSE 110; RESP 20; TEMP 36.9; O2SAT 96
[2025-01-06 18:18] LABS: MANUAL DIFF FLAG NO
[2025-01-06 18:32] LABS: Alanine Aminotransferase 21 U/L (0-40); Albumin Level 4.4 g/dL (3.5-5.0); Alkaline Phosphatase 85 U/L (39-117); Anion Gap 18 (12-20); Aspartate Amino Transferase 21 U/L (5-37); Blood Urea Nitrogen 12 mg/dL (9-16); Calcium 8.9 mg/dL (8.4-10.2); Carbon Dioxide 22 mmol/L (22-29); Chloride 107 mmol/L (96-108); Creatinine Clr Calc Pharmacy 74.5; Estimated Glomerular Filt Rate > 60; Magnesium 1.9 mg/dL (1.6-2.6); Potassium 3.6 mmol/L (3.3-5.1); Sodium 143 mmol/L (135-145); Total Protein 7.0 g/dL (6.5-8.0)
[2025-01-06 18:33] LABS: COVID-19 Test Negative (Negative); Hematocrit 40.8 % (42.0-52.0); Hemoglobin 14.1 g/dl (14.0-18.0); IDNOW Serial# 55D5AD1C; Imm Gran Abs Auto 0.16 X10*3/uL (0.00-0.03); Imm Gran Pct Auto 1.4 % (0.0-0.4); Lymphocytes Absolute Auto 2.3 X10*3/uL (1.2-4.9); Mean Corpuscular HGB Conc 34.6 g/dl (31.0-36.0); Mean Corpuscular Hemoglobin 29.4 pg (27.0-33.0); Mean Corpuscular Volume 85.0 fL (80.0-98.0); NRBC Abs Auto 0.000 X10*3/uL (0.0-0.012); NRBC Pct Auto 0.0 /100WBC (0.0-0.2); Platelet Count 296 X10*3/uL (160-400); Red Blood Count 4.80 X10*6/uL (4.60-5.80); White Blood Count 11.4 X10*3/uL (4.8-10.8)
[2025-01-06 18:35] LABS: INTERNATIONAL NORM RATIO 0.9 (0.9-1.1); Prothrombin Time 10.7 SEC (10.9-12.4)
[2025-01-06] MEDS: iohexoL 350 MG/ML 100 ML INFUS..BTL IV (19:57)
[2025-01-06 20:00] VITALS: BP 144/77; PULSE 105; RESP 19; TEMP 36.9; O2SAT 97
[2025-01-06 22:00] VITALS: BP 116/59; PULSE 100; RESP 18; TEMP 37; O2SAT 98
[2025-01-06] MEDS: Fluorescein Sodium STRIP 1 STRIP EYE-BOTH (22:05)
[2025-01-07 05:11] VITALS: BP 114/67; PULSE 99; RESP 16; TEMP 36.7; O2SAT 95
--- NOTE | 2025-01-07 08:34 | PC.NURSE ---
7am. pt is eating breakfast. axox3. bruising across seema eyes and around nose. slight swelling to entire area. provided with clean clothes, ice to face. Awaits CM plan of care. Is able to stand/get dressed w/o assist.
--- NOTE | 2025-01-07 09:05 | PC.NURSE ---
Patient escorted to Pod to take a shower. Ambulates with steady gait. Pleasant/calm/cooperative, thankful.
--- NOTE | 2025-01-07 09:58 | PC.NURSE ---
Patient returned to ED 25 from pod after shower. Call miguel within reach. Denies additional needs at this time. Care ongoing by this RN.
[2025-01-07 10:04] VITALS: BP 133/75; PULSE 102; RESP 20; TEMP 36.6; O2SAT 94
--- NOTE | 2025-01-07 11:59 | PC.NURSE ---
Report given by phone to Jackie HEALY. Patient to be moved from ED 25 to Overflow 3.
[2025-01-07 12:56] VITALS: BP 133/75; PULSE 102; O2SAT 94
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
--- NOTE | 2025-01-07 13:49 | MHC.CM.ED ---
Received case management consult overnight. Physical therapy eval completed. Short term rehab is recommended. Patient agreeable to referral being broadcasted locally for bed offers. Continue to monitor for d/c needs.
[2025-01-07 14:00] VITALS: BP 115/63; PULSE 91; RESP 18; TEMP 37.2; O2SAT 96
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
[2025-01-07 20:05] VITALS: BP 119/68; PULSE 84; RESP 18; TEMP 36.7; O2SAT 94
[2025-01-07 23:30] VITALS: BP 110/74; PULSE 102; RESP 18; TEMP 36.8; O2SAT 96
[2025-01-08 05:55] VITALS: BP 140/79; PULSE 87; RESP 18; TEMP 36.4; O2SAT 94
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
[2025-01-08 14:40] VITALS: BP 136/71; PULSE 81; RESP 16; TEMP 36.7; O2SAT 98
[2025-01-08 22:00] VITALS: BP 132/68; PULSE 80; RESP 15; TEMP 36.8; O2SAT 98
[2025-01-09 05:39] VITALS: BP 136/88; PULSE 95; RESP 16; TEMP 36.8; O2SAT 96
[2025-01-09] MEDS: Magnesium Hydrox/Alum Hydrox 30 ML ORAL.SUSP PO (06:28)
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
--- NOTE | 2025-01-09 10:13 | PC.NURSE ---
Pt has been up to BR with steady gait. Reports mult areas of pain. Motrin has been only slightly helpful. Pt plans to shower after lunch. Is eating/drinking well.
[2025-01-09 14:00] VITALS: BP 128/74; PULSE 93; RESP 16; TEMP 36.1; O2SAT 94
--- NOTE | 2025-01-10 05:28 | PC.NURSE ---
pt sleeping, no sign of distress.
--- NOTE | 2025-01-10 05:49 | PC.NURSE ---
pt medicated per MAR, PT given a warm blanker.
[2025-01-10 06:00] VITALS: BP 131/76; PULSE 82; RESP 16; TEMP 36.6; O2SAT 95
--- NOTE | 2025-01-10 07:30 | PC.NURSE ---
Care of Pt assumed at change of shift. Pt rests quietly in bed and is observed walking to the bathroom. NAD noted and Pt is awaiting dispo.
[2025-01-10 08:38] VITALS: BP 144/76; PULSE 92; RESP 18; TEMP 36.6; O2SAT 99
--- NOTE | 2025-01-10 10:21 | PHA.MEDREC ---
Addendum entered by Sekou Botello PharmD 01/10/25 10:31: reviewed Original Note: Pharmacy Consult ? Medication Reconciliation Pharmacy has reviewed the medication reconciliation done by nursing.
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
[2025-01-10 14:00] VITALS: BP 120/71; PULSE 93; RESP 14; TEMP 36.9; O2SAT 95
[2025-01-10 21:14] VITALS: BP 117/63; PULSE 84; RESP 18; TEMP 36.6; O2SAT 92
[2025-01-10 21:44] VITALS: BP 117/63; PULSE 92; RESP 20; TEMP 36.6; O2SAT 95
[2025-01-10 22:10] VITALS: RESP 18
[2025-01-11 06:47] VITALS: BP 152/75; PULSE 90; RESP 20; TEMP 37; O2SAT 96
[2025-01-11 14:00] VITALS: BP 131/71; PULSE 88; RESP 17; TEMP 36.9; O2SAT 100
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
[2025-01-11 18:55] VITALS: BP 130/64; PULSE 80; RESP 17; TEMP 36.9; O2SAT 100
[2025-01-11 20:22] VITALS: BP 125/77; PULSE 91; RESP 18; TEMP 37.1; O2SAT 95
[2025-01-11 23:00] VITALS: RESP 20
[2025-01-12 06:00] VITALS: BP 140/79; PULSE 74; RESP 18; TEMP 37; O2SAT 96
--- NOTE | 2025-01-12 08:04 | PC.NURSE ---
patient a&ox3, ambulatory independently with steady gait, rr equal/non labored, lungs clear, vitals previously stable, pt states he does not take any home medications, complains of 8/10 back/leg pain- medications earlier were given without relief and outside pain parameter, will notify ed provider, per product engineer pt ? [facility] but needs new PT note prior to them accepting, call miguel within reach, plan of care ongoing.
--- NOTE | 2025-01-12 08:14 | MHC.EDTECH ---
pt ate 100% breakfast was a self with oral care and was offered to wash up and pt stated later.
--- NOTE | 2025-01-12 09:25 | PC.NURSE ---
pt insisted on discharge, provider came over to see patient, it was agreed upon to discharge. this nurse spoke with madhav about discharging patient with van giving him a ride. the patient needed to get to the bank to obtain money for a place to stay- [facility] services stated to have patient come down and they will bring him to his destination.
[2025-01-12 09:32] VITALS: BP 138/77; PULSE 72; RESP 18; TEMP 36.7; O2SAT 96
== END 2025-01-12 09:33 | disposition home or self-care (01) ==
PROVIDERS: Physician Assistant; Emergency Provider Student in an Organized Health Care Education/Training Program
DX: S06.0X0A Concussion without loss of consciousness, initial encounter (principal); S02.2XXA Fracture of nasal bones, initial encounter for closed fracture; S00.12XA Contusion of left eyelid and periocular area, initial encounter; S00.11XA Contusion of right eyelid and periocular area, initial encounter; R51.9 Headache, unspecified; R60.0 Localized edema; M79.604 Pain in right leg; M54.2 Cervicalgia; R26.81 Unsteadiness on feet; R10.2 Pelvic and perineal pain; R07.89 Other chest pain; V43.02XA Car driver injured in collision with other type car in nontraffic accident, initial encounter; Y93.9 Activity, unspecified; Y92.410 Unspecified street and highway as the place of occurrence of the external cause; Y99.8 Other external cause status; Z79.899 Other long term (current) drug therapy; Z11.52 Encounter for screening for COVID-19; Z03.818 Encounter for observation for suspected exposure to other biological agents ruled out
CPT/HCPCS: 70450; 70486; 71260; 72125; 73560; 73610; 74177; 80053; 83735; 85025; 85610; 87635; 93971; 96374; 96375; 96376; 97162; 97530; 99285; J1885; J2270; Q9967

== ENCOUNTER → 2025-01-06 17:29 | Outpatient (BNV) | payer MEDICARE, SELFPAY | PROVIDERS: Emergency Provider Student in an Organized Health Care Education/Training Program; Visit Provider Radiology Diagnostic Radiology | DX: N20.0 Calculus of kidney (principal); R91.8 Other nonspecific abnormal finding of lung field; M48.02 Spinal stenosis, cervical region; S02.2XXA Fracture of nasal bones, initial encounter for closed fracture; S06.0X0A Concussion without loss of consciousness, initial encounter; R22.41 Localized swelling, mass and lump, right lower limb; M79.89 Other specified soft tissue disorders; M17.11 Unilateral primary osteoarthritis, right knee | CPT/HCPCS: 70450; 70486; 71260; 72125; 73560; 73610; 74177; 93971 ==

== ENCOUNTER 2025-01-14 18:08 | Emergency (ER) | payer MEDICARE, OTHER, SELFPAY ==
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
[2025-01-14 18:22] VITALS: BP 142/73; PULSE 111; RESP 18; TEMP 36.3; O2SAT 96; BMI 27.3
[2025-01-14 21:50] VITALS: BP 143/59; PULSE 98; RESP 16; TEMP 36.7; O2SAT 95
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
--- OUTSIDE RECORDS SUMMARY | 2025-01-14 21:54 | XMS_ITS | Clinical Summary ---
Author Organization [facility] Address [address] [place] [address] Care Team Providers Care Order Dispatcher Name Role Phone Pcp, No Primary Care Provider Unavailabl e Allergies No known active allergies Medications acetaminophen (TYLENOL) 500 MG tablet Take 1 tablet (500 mg total) by mouth as needed for mild pain. Active multivitamin Tab tablet Take 1 tablet by mouth daily. Active predniSONE (DELTASONE) 20 MG tabletIndicatio ns:Myasthenia gravis in crisis (HCC) 3 tablets (60 mg total) by Feeding Tube route every morning with breakfast. With food. 90 tablet 09/27/2023 Active pyridostigmine 30 MG TabIndications: Myasthenia gravis in crisis (HCC) 30 mg by Feeding Tube route every 8 (eight) hours around the clock. 90 tablet 3 09/26/2023 Active Active Problems Problem Noted Date Diagnosed Date Moderate protein-calorie mal nutrition (HCC) mild/moderate body fat loss to buccal, tricep/bicep; mild/moderate muscle mass loss to quadriceps, gastrocnemius,temporalis 09/22/2023 Myasthenia 09/20/2023 Social History Tobacco Use Types Packs/Day Years Used Date Smoking Tobacco: Never Assessed [facility] Utilities Answer Date Recorded In the past 12 months has DS [employer], [email or web address], oil, or water [facility] threatened to shut off services in your home? No 09/24/2023 AUDIT-C Answer Date Recorded Q1: How often do you have a drink containing alcohol? Never 09/21/2023 Q2: How many drinks containi ng alcohol do you have on a typical day when you are drinking? Patient does not drink Q3: How often do you have si x or more drinks on one occasion? Never 09/21/2023 Hunger Vital Sign Answer Date Recorded Within the past 12 months, y ou worried that your food would run out before you got the money to buy more. Never true 09/24/19 24 Within the past 12 months, t he food you bought just didn't last and you didn't have money to get more. Never true 09/24/2023 PRAPARE - Transportation Answer Date Re corded In the past 12 months, has l ack of transportation kept you from medical appointments or from getting medications? No 08/27 In the past 12 months, has l ack of transportation kept you from meetings, work, or from getting things needed for daily living? No 09/24/2023 Housing Stability Vital Sign Answer Junior e Recorded In the last 12 months, was t here a time when you were not able to pay the mortgage or rent on time? No 09/24/2023 In the last 12 months, how many places have you lived? 1 09/24/2023 In the last 12 months, was t here a time when you did not have a steady place to sleep or slept in a halfway (including now)? No 09/24/2023 Sex and Gender Information Value Date Recorded Sex Assigned at Male 09/20/2023 3:00 PM EDT Legal Sex Male 6:32 PM EST Gender Identity Male 09/20/2023 3:00 PM EDT Sexual Orientation Choose not to disclose 2023 3:00 PM EDT Last Filed Vital Signs Vital Sign Reading Time Taken Comments Blood Pressure 137/70 09/26/2023 8:00 AM EDT Pulse 91 09/26/2023 8:00 AM EDT Temperature 36.9 C (98.5 F) 09/26/2023 8:00 AM EDT Respiratory Rate 18 09/26/2023 8:00 AM EDT Oxygen Saturation 95% 09/26/2023 8:00 AM EDT Inhaled Oxygen Concentration - - Weight 88.4 kg (194 lb 14.2 oz) 09/20/2023 4:06 PM EDT Height 182.9 cm (6') 09/20/2023 4:42 PM EDT Body Mass Index 26.43 09/20/2023 4:06 PM EDT Plan of Treatment Health Maintenance Due Date Last Done Comments Advance Care Planning 1950 Hepatitis C Virus Screening 1950 DTaP/Tdap/Td Vaccines (1 - Tdap) 07/11/1971 Colonoscopy 1997 Pneumococcal Vaccines 50+ (1 of 1 - PCV) 2002 Zoster (Shingles) Vaccine (1 of 2) 2002 Influenza Vaccine 11/26/2024 COVID-19 Vaccine (1 - 2023-2 5 season) 2024 RSV Vaccine 60 years and old er and Patients (1 - 1-dose 75+ series) 07/11/2027 Hepatitis B Vaccines Aged Out No long er eligible based on patient's age to complete this topic Insurance MEDICARE PART A Advance Directives * Full Code (Latest Code Status on File) Date Activated Date Inactivated Comments 09/20/2023 5:24 PM Care Teams Order Dispatcher Relationship Specialty Start Date End Date Pcp, No PCP - General General Medicine 09/16/23
--- NOTE | 2025-01-14 23:43 | PC.NURSE ---
pt medicated per MAR.
[2025-01-15] MEDS: Lidocaine 4 % Patch ADH..PATCH 1 PATCH TRANSDERMA (00:05)
--- NOTE | 2025-01-15 04:14 | PC.NURSE ---
p sleeping in stretcher. No plan for d/c at this time.
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
[2025-01-15 05:41] VITALS: BP 108/60; PULSE 91; RESP 18; TEMP 37.4; O2SAT 94
[2025-01-15 08:32] VITALS: BP 108/60; PULSE 91; O2SAT 94
--- NOTE | 2025-01-15 09:34 | PC.NURSE ---
Pt currently at rest in hallway, wearing his own clothes. Walking to bathroom independently. Only complains of chronic knee pain this morning.
--- NOTE | 2025-01-15 10:22 | MHC.CM.PN ---
CM RECEIVED ED CM CONSULT. CM MET WITH PT AT BEDSIDE IN ED. PER P.T. RECOMMENDATION, PT WILL NEED O.P. SERVICES, PT PROVIDED WITH CONTACT INFO TO [facility] AT [facility]. PT IS CURRENTLY HOMELESS, STAYING AT [facility] BUT STATES HE IS UNABLE TO RETURN. NURSING HOME LIST PROVIDED TO PT. PROVIDED UPDATED AND PT WILL BE DC .
[2025-01-15 11:02] VITALS: BP 108/60; PULSE 91; RESP 18; TEMP 36.6; O2SAT 94
== END 2025-01-15 11:03 | disposition home or self-care (01) ==
PROVIDERS: Emergency Provider Emergency Medicine
DX: R29.6 Repeated falls (principal); R07.81 Pleurodynia; R53.1 Weakness; R51.9 Headache, unspecified; R07.89 Other chest pain; M54.50 Low back pain, unspecified; R26.81 Unsteadiness on feet; Z79.899 Other long term (current) drug therapy
CPT/HCPCS: 71101; 97161; 99284

== ENCOUNTER → 2025-01-14 23:43 | Outpatient (BNV) | payer MEDICARE, SELFPAY | PROVIDERS: Emergency Provider Emergency Medicine; Visit Provider Radiology Diagnostic Radiology | DX: R07.89 Other chest pain (principal); Y09 Assault by unspecified means | CPT/HCPCS: 71101 ==